=== PATIENT | female | born 1960 | race Caucasian/White ===

== ENCOUNTER 2019-07-12 09:38 | Emergency (ER) | payer MEDICARE ==
--- NOTE | 2019-07-12 10:50 | XRAY ---
Indication: Pain following fall one week ago. Comparison: None 3 nonweightbearing views of the right foot demonstrates moderate plantar heel spurs. No other bony, articular, or soft tissue abnormalities.
--- NOTE | 2019-07-12 10:52 | XRAY ---
Indication: Pain following fall one week ago. Comparison: None 2 views of the right lower leg demonstrates tiny patella spurring. No other bony, articular, or soft tissue abnormalities.
--- NOTE | 2019-07-12 10:52 | XRAY ---
Indication: Pain following fall one week ago. Comparison: None 2 views of the right femur demonstrates tiny patella spurring and minimal vascular calcifications including pelvic phleboliths. No other bony, articular, or soft tissue abnormalities.
--- NOTE | 2019-07-12 10:55 | XRAY ---
Indication: Pain following fall one week ago. Comparison: None 3 views of the left shoulder demonstrates moderate AC degenerative arthropathy. No other bony, articular, or soft tissue abnormalities.
[2019-07-12 11:34] VITALS: BP 143/73; PULSE 73; O2SAT 93
== END 2019-07-12 11:35 | disposition home or self-care (01) ==
LOC: ED 09:38
DX: M54.5 Low back pain (principal); W19.XXXA Unspecified fall, initial encounter; I10 Essential (primary) hypertension; I25.10 Atherosclerotic heart disease of native coronary artery without angina pectoris; E10.9 Type 1 diabetes mellitus without complications
CPT/HCPCS: 73030; 73552; 73590; 73630; 99283

== ENCOUNTER 2020-04-14 06:48 | Day surgery (SDC) | payer MEDICARE ==
[2020-04-14] MEDS ORDERED: CEFAZOLIN 2 GM-D5W BAG** 2 GM/50 ML ML IV ONE (07:18)
[2020-04-14] MEDS ORDERED: Lactated Ringers 1,000 ML IV ONE (07:18)
[2020-04-14] MEDS ORDERED: Lactated Ringers 1,000 ML IV SCH (07:30)
[2020-04-14] MEDS ORDERED: CEFAZOLIN 2 GM-D5W BAG** 2 GM/50 ML ML IV SCH (07:30)
[2020-04-14] MEDS ORDERED: Marcaine 0.5% SDV 10 ML ONE ×2 (08:14→10:17)
[2020-04-14] MEDS ORDERED: XYLOCAINE 1% HCL 20 ML MDV ONE (08:15)
[2020-04-14] MEDS ORDERED: SUBLIMAZE 100 MCG/2 ML ONE ×3 (08:39→10:42)
[2020-04-14] MEDS ORDERED: Versed 2 MG/2 ML Injection ONE (08:39)
[2020-04-14] MEDS ORDERED: Xylocaine-Mpf 2% 5 Ml Vial ONE (08:41)
[2020-04-14] MEDS ORDERED: DIPRIVAN 200 MG/20 ML IV ONE ×3 (09:07→10:03)
--- NOTE | 2020-04-14 10:33 | XRAY ---
Indication: Open reduction internal fixation nonunion left 5th metatarsal fracture with calcaneal bone graft. Intraoperative fluoroscopy was provided for 1 minute 49 seconds. 11 digital spot images submitted for interpretation demonstrates orthopedic plate/screws fixating distal 5th metatarsal fracture in good apposition/alignment. Calcaneal radiolucent defect presumed donor bone graft site. Correlate with intraoperative findings/reported.
[2020-04-14] MEDS ORDERED: TORAdol 30 mg Injection ONE (10:42)
--- NOTE | 2020-04-14 12:49 | XRAY ---
1 minute and 49 seconds fluoroscopy time in surgery for open reduction left 5th distal metatarsal and bone graft from left calcaneus.
--- NOTE | 2020-04-14 14:32 | OP ---
SURGERY DATE: 04/14/2020 0850 PREOPERATIVE DIAGNOSES: 1) Nonunion of fifth metatarsal fracture. 2) Left foot pain. POSTOPERATIVE DIAGNOSES: 1) Nonunion of fifth metatarsal fracture. 2) Left foot pain. PROCEDURE: Open reduction internal fixation of fifth metatarsal fracture left foot, calcaneal autograft harvest left foot and application of demineralized bone matrix. SURGEON: Rocael Goss DPM. CARPENTER'S HELPER: None. ANESTHESIA: MAC plus local. HEMOSTASIS: Thigh tourniquet up to 350 for approximately 70 minutes. ESTIMATED BLOOD LOSS: Less than 10 cc. MATERIALS: [employer] Y-plate four hole, 2 locking 10 mm screws, 2 nonlocking 12 mm screws, 2-0 Vicryl and 3-0 Nylon. INJECTABLES: Total of 27 cc of a 1:1 mixture of 0.5% Marcaine plain and 1% lidocaine plain. INDICATION FOR SURGERY: Tamara presented with significant pain to the left foot ongoing for approximately four months at the time of her appointment. The patient states that back in November 2019 she was at a pool in [place] when she jumped into the shallow end of the pool foot first the result was her fracturing her fifth metatarsal. Over the course of several months, she was seen by orthopedics in [place] whom had instructed her to ambulate with a stiff soled surgical shoe for several months. At the 3 month elie she was seen and told to ransition to a normal shoe as the fracture was healed or in the process of healing. She presened to me with more pain than she had initially had which she has had continued pain. At the time of presentation, she has had pain and a grinding sensation with ambultation suspecting a non-healed fracture at this time. The patient presented to me desperate for pain relief. After acquiring a CT scan and independently reviewing the images, it appears that there is a nonunion with minimal callous formation at the fracture site. At this time due to the pain and the evidence of a nonunion, she fits the criteria for a bone stimulator. However, the patient is adamant about the amount of pain she experiences when she ambulates and would like surgical intervention. The patient was advised of all the risks, complications and benefits of the procedure itself to which she agreed. There were no guarantees as to the outcome of this procedure to which the patient voiced her understanding and it was with that we decided to proceed with surgical intervention in order to give her the best possible outcome including resection of the nonunion autograft harvest from the calcaneus and placement into the deficit, internal fixation in order to prevent motion at the site of healing and a bone stimulator in order to promote growth. DESCRIPTION OF PROCEDURE AND FINDINGS: Following satisfactory preoperative evaluation by her physician and the anesthesia team, Tamara was brought into the OR and placed onto the OR table in supine position. At this time attention was directed to the left foot where preoperative x-rays were taken AP, MO and LAT. At this the anesthesia team administered MAC sedation and the patient was put to sleep. At this time a 27 cc solution of a 1:1 mixture of 0.5% Marcaine plain and 1% lidocaine plain was injected into the ankle in typical ankle block-type fashion under aspect technique. At this time the attention was directed towards the left foot and ankle where a thigh tourniquet was placed and set to 350 mm of Mercury. At this time the lower extremity was prepped and draped in the typical sterile fashion and the left lower extremity was lowered onto the surgical field. At this time a linear incision over the dorsal shaft of the fifth metatarsal was made utilizing a 15 blade combination of blunt and sharp dissection was utilized in order to get to the metatarsal shaft protecting any neurovascular structures along the way as well as the extensor tendons in the path of the fracture. At this time a freer was utilized to strip off any remaining soft tissue attachments to the bone identifying the fracture site which was not healed and no evidence of callous was present. At this time a curette was utilized to scrape the bone edges and a small 1/4 inch osteotome was utilized to resect the bone edges of the fracture site. At this time a point of reduction clamp was utilized to re-approximate the bone edges in its appropriate position and this was checked under fluoroscopy in order to assess the position. At this time the dorsal Y-plate was placed over the fracture site where I had intended on placing the definitive fixation. After determining the appropriate placement a BB tack was utilized to keep the placement of the plate from shifting at its proximal extent. At this time a nonlocking 12 mm screw was drilled into the most proximal aspect of the plate and placed in order to get apposition of the plate to the bone. After observing this under fluoroscopy and deeming it to be accurate the distal aspect of the plate was secured utilizing two - 10 mm locking screws to which were placed in the plate in a unicortical-type fashion. At this time attention was then directed to the left calcaneus where under fluoroscopy determination of where the autograft would be harvested was identified. After identifying the appropriate spot, a 15 blade was utilized to make an incision which was spread with a curved hemostat in order to prevent any neurovascular injury. A soft tissue protector and 2.0 mm drill were utilized to puncture a hole through the lateral aspect of the calcaneus and variably sized curettes were utilized in order to obtain some calcaneal autograft. The curettes were sized from 0 to 3 mm. After obtaining the bone graft a mixture of demineralized bone matrix was reinserted into the deficit under fluoroscopic guidance. At this time the autograft was placed within the deficit of the bone fracture site and the final screw was placed in the oblong hole gaining some eccentric compression of the fracture site however minimal. At this time the wound was superficially cleansed with copious amounts of sterile saline however as not to flush out any of the autograft. At this time a 2-0 Nylon was utilized to reapproximate the subcutaneous tissue in an interrupted-type fashion at the dorsal aspect of the fifth metatarsal. Following this a 3.0 Nylon was utilized to sera the skin edges and reapproximate them under no tension in a horizontal mattress-type fashion. At this time attention was directed to the incision for the calcaneal autograft where a 3-0 Nylon was utilized in a box stitch type fashion to reapproximate the incision at this place. Wet sterile saline soaked gauze was utilized to cleanse the leg and then was dried with a lap. Betadine paint was placed over the wounds which was covered by Adaptic, 4x4's, two Kerlix and one - 4 inch ELISEO. At this time the patient was reversed from anesthesia. The tourniquet time was approximately 70 minutes. The patient was returned to the postoperative anesthesia care unit with vital signs stable and vascular status intact. She handled the operation and the procedure without complication. POSTOPERATIVE ORDERS FOLLOWS: 1) Nonweight bearing to the left lower extremity. 2) Monroe 5/325 mg for postoperative pain every four or six hours dispense #40. 3) Postoperative prescription for Keflex 500 mg q.6h for infection prophylaxis. 4) Prescription for aspirin 325 mg to be taken postoperative day #2 for deep venous thrombosis prophylaxis. 5) The patient is to be nonweight bearing and utilize the knee scooter that she was provided in order to ambulate. It was expressed to her and her that she needs to stay off of the lower extremity for an extended period of time if we want this procedure to be successful. 6) Utilize the bone stimulator starting postoperative day #1. 7) The patient to be discharged per anesthesia recommendations after cleared from postoperative anesthesia care unit.
[2020-04-14 15:38] VITALS: BP 143/75; PULSE 53; O2SAT 97
== END 2020-04-14 12:05 | disposition home or self-care (01) ==
LOC: SDC 06:48
PROVIDERS: ATTEND Podiatrist Foot & Ankle Surgery
DX: S92.352K Displaced fracture of fifth metatarsal bone, left foot, subsequent encounter for fracture with nonunion (principal); E11.9 Type 2 diabetes mellitus without complications; I10 Essential (primary) hypertension; Z86.79 Personal history of other diseases of the circulatory system; Z79.899 Other long term (current) drug therapy
CPT/HCPCS: 28322; 73630; 76000; 82962; J0690; J1885; J2250; J2704; J3010

== ENCOUNTER 2020-09-15 05:55 | Day surgery (SDC) | payer MEDICARE ==
[2020-09-15] MEDS ORDERED: Lactated Ringers 1,000 ML IV SCH (06:30)
[2020-09-15] MEDS ORDERED: DIPRIVAN 200 MG/20 ML IV ONE (07:21)
[2020-09-15 08:39] VITALS: O2SAT 97
[2020-09-15 08:46] VITALS: BP 157/83; PULSE 74
--- NOTE | 2020-09-15 09:52 | OP ---
SURGERY DATE/TIME: 09/15/2020 0755 PREOPERATIVE DIAGNOSIS: Gastroesophageal reflux. POSTOPERATIVE DIAGNOSES: 1) Moderate gastritis. 2) Small benign gastric gland polyp. PROCEDURE: Esophagogastroduodenoscopy with biopsy. SURGEON: Dr. Choi. ANESTHESIA: Medications were given by the anesthesia department. BRIEF HISTORY: The patient is a 60 year old white female who reports that she has had trouble with reflux and heartburn despite her medications. She is taking famotidine presently and she previously had endoscopy performed and apparently had dilation procedure. The patient was felt the need to have endoscopic evaluation. She was appraised of the risks of the procedure including the risk of perforation, phlebitis, untoward reaction to medication, bleeding and missed lesions. The patient verbalized her understanding and desired to have the procedure performed. DESCRIPTION OF PROCEDURE: The patient was given the medications by the anesthesia department. She had continuous pulse oximetry, ECG monitoring, intermittent blood pressure monitoring and tidal CO2 monitoring during the examination. The patient was placed in the left lateral decubitus position. A bite block was placed and the flexible Olympus gastroscope was used to intubate the oropharynx. A view of the larynx was obtained and was normal. The scope was easily introduced in the esophagus which appeared to be essentially normal throughout its length. The stomach was entered where normal gastric rugal folds were seen. Small fundic gland polyps were seen which are considered to be benign. The scope was passed along the greater curvature of the stomach to the antrum. There appeared to be moderate erythema throughout the stomach. Biopsies were obtained to rule out the presence of Helicobacter pylori-type organisms and confirm the presence of gastritis. The pylorus was encountered and intubated. The duodenum inspected and found to be normal. The scope is withdrawn towards the stomach. Again, a retroflex view was obtained of the lesser curvature, fundus and cardia regions of the stomach and these appeared to essentially normal other than the gastritis and there was a very small polyp. The scope was removed from the patient who tolerated the procedure well and was sent back to outpatient recovery in good condition. We suggest the patient add a proton pump inhibitor to her H2 max to help with her gastritis. We will see her in the office in follow up in one week for further discussion about her biopsy reports.
== END 2020-09-15 08:50 | disposition home or self-care (01) ==
LOC: SDC 05:55
PROVIDERS: ATTEND Family Medicine
DX: K29.70 Gastritis, unspecified, without bleeding (principal); K21.9 Gastro-esophageal reflux disease without esophagitis; K31.7 Polyp of stomach and duodenum
CPT/HCPCS: J2704

== ENCOUNTER 2020-11-05 17:11 | Emergency (ER) | payer MEDICARE ==
[2020-11-05 17:24] VITALS: O2SAT 98
--- NOTE | 2020-11-05 17:32 | ERPHSYRPT ---
- History of Present Illness Source: patient Exam Limitations: no limitations Patient Subjective Stated Complaint: Pt fell through her porch injuring her right lower leg, pt is unable to place weight on the leg Triage Nursing Assessment: Pt was brought to the ER by her daughter, rates pain in her right lower leg as 9/10, nauseaous, right leg has a bruise that goes around the calf, denies any other injuries, pulses normal, cap refill normal, hypertensive, tachycardic Physician History: Patient is a 60-year-old female with right leg and ankle injury. Patient apparently injured her right leg and ankle and foot when it went through her the floor of her porch. Patient mainly complaining of pain from mid leg down. No previous injuries to that area in the past. Patient unable to bear weight. There are injuries. Method of Injury: fell Occurred: just prior to arrival Quality: constant, throbbing Severity of Pain-Max: severe Severity of Pain-Current: moderate Lower Extremities Pain: leg: right, foot: right, ankle: right Modifying Factors: Improves With: movement Associated Symptoms: unable to bear weight Allergies/Adverse Reactions: No Known Drug Allergies Allergy (Verified 11/05/20 17:24) Home Medications: Atorvastatin Calcium 10 mg PO DAILY 09/12/20 [History] Ergocalciferol (Vitamin D2) [Vitamin D] 50,000 unit PO WEEKLY 09/12/20 [History] Famotidine 20 mg [Pepcid 20 MG] 20 mg PO BID 09/12/20 [History] Gabapentin 100 mg PO BID 09/12/20 [History] Montelukast Sodium 10 mg [Singulair 10 MG] 10 mg PO HS 09/12/20 [History] Vitamin B Complex 1 each PO DAILY PRN PRN 09/12/20 [History] Hx Tetanus, Diphtheria Vaccination/Date Given: (unknown) Hx Influenza Vaccination/Date Given: No Hx Pneumococcal Vaccination/Date Given: Yes Travel Risk - International Travel Have you traveled outside of the country in past 3 weeks: No - Coronavirus Screening Are you exhibiting any of the following symptoms?: No Close contact with a COVID-19 positive Pt in past 14-21 Days: No - Review of Systems Constitutional: No Fever, No Chills Eyes: No Symptoms Ears, Nose, & Throat: No Symptoms Respiratory: No Cough, No Dyspnea Cardiac: No Chest Pain, No Edema, No Syncope Abdominal/Gastrointestinal: No Abdominal Pain, No Nausea, No Vomiting, No Diarrhea Genitourinary Symptoms: No Dysuria Musculoskeletal: Joint Pain, Joint Swelling, Myalgias, No Back Pain, No Neck Pain Skin: No Rash Neurological: No Dizziness, No Focal Weakness, No Sensory Changes Psychological: No Symptoms Endocrine: No Symptoms All Other Systems: Reviewed and Negative - Past Medical History Pertinent Past Medical History: Yes Neurological History: No Pertinent History ENT History: No Pertinent History Cardiac History: Coronary Artery Disease, High Cholesterol, Hypertension, Myocardial Infarction (CO) Respiratory History: Sleep Apnea Endocrine Medical History: Diabetes Type II Musculoskeletal History: No Pertinent History GI Medical History: GERD, Gallbladder Disease History: No Pertinent History Psycho-Social History: No Pertinent History Female Reproductive Disorders: No Pertinent History Other Medical History: UTI - Past Surgical History Past Surgical History: Yes Neuro Surgical History: No Pertinent History Cardiac: Cardiac Catheterization, Cardiac Stent Respiratory: No Pertinent History Gastrointestinal: Cholecystectomy Genitourinary: No Pertinent History Musculoskeletal: Orthopedic Surgery Female Surgical History: Hysterectomy, Tubal Ligation Other Surgical History: colonoscopy,EGD two yrs ago (GERD) exploratory lap - neg., left foot fx with plate placed March 2020 - Social History Smoking Status: Never smoker Exposure to second hand smoke: No Drug Use: none Patient Lives Alone: No - Female History Hx Now: No - Nursing Vital Signs Nursing Vital Signs: Initial Vital Signs Temperature 97.7 F 11/05/20 17:15 Pulse Rate 105 H 11/05/20 17:15 Blood Pressure 180/90 11/05/20 17:15 O2 Sat by Pulse Oximetry 98 11/05/20 17:15 Pain Scale Pain Intensity 9 - Physical Exam General Appearance: no apparent distress, alert Eyes, Ears, Nose, Throat Exam: moist mucous membranes Neck Exam: non-tender, supple Cardiovascular/Respiratory Exam: chest non-tender, normal breath sounds, regular rate/rhythm, no respiratory distress Gastrointestinal/Abdominal Exam: non-tender, guarding Back Exam: normal inspection, No vertebral tenderness Legs Exam: right leg: ecchymosis (Mid leg circumferentially), limited range of motion, soft tissue tenderness, swelling Ankle Exam: right ankle: joint effusion, limited range of motion, soft tissue tenderness (Lateral malleolus), swelling Foot Exam: right foot: pain (Proximal), soft tissue tenderness Neuro/Tendon Exam: normal sensation, normal motor functions Mental Status Exam: alert, oriented x 3, cooperative Skin Exam: normal color, warm, dry SpO2 Interpretation: normal SpO2: 98 - Course Nursing assessment & vital signs reviewed: Yes Ordered Tests: Active Orders 24 hr Category Date Time Status Splint STAT Care 11/05/20 18:41 Active ANKLE (3 VIEWS) Stat Exams 11/05/20 17:38 Taken LOWER LEG Stat Exams 11/05/20 17:38 Taken Medication Summary Discontinued Medications Generic Name Dose Route Start Last Admin Trade Name Freq PRN Reason Stop Dose Admin Hydrocodone Bitart/Acetaminophen 1 tab 11/05/20 17:44 11/05/20 17:49 [place] 5/325 Mg PO 11/05/20 17:45 1 tab STAT ONE Administration Hydrocodone Bitart/Acetaminophen Confirm 11/05/20 17:47 [place] 5/325 Mg Administered 11/05/20 17:48 Dose 1 tab .ROUTE .STK-MED ONE - Departure Departure Disposition: Home Clinical Impression: Right ankle sprain, Contusion of leg, right Condition: Stable Critical Care Time: No Referrals: CARLITOS DYKES [Primary Care Provider] - Instructions: Contusion (DC), Ankle Sprain (DC) Additional Instructions: Monitor symptoms closely. Ice to area. Rest. Compression. Elevation. Ibuprofen or Aleve for pain. Use knee roller as discussed. Follow-up with your PCP in 3 to 3 days for recheck if not better. Return to ER if worse. Our radiologist will review the x-ray and call you if there is a discrepancy in the x-ray readings. Prescriptions: Hydrocodone/APAP 5/325 [Craigmont 5/325 mg] 1 each PO Q6H PRN PRN #10 tablet MDD 4 tabs PRN Reason: Pain
[2020-11-05] MEDS ORDERED: NORCO 5/325 MG PO ONE (17:44)
[2020-11-05] MEDS ORDERED: NORCO 5/325 MG ONE (17:47)
[2020-11-05 18:17] VITALS: BP 160/107
[2020-11-05 19:01] VITALS: PULSE 78
--- NOTE | 2020-11-06 08:36 | XRAY ---
Indication: Pain following fall. Comparison: None 2 view right lower leg demonstrates mild lateral soft tissue swelling. No other bony, articular, or soft tissue abnormalities. Ankle reported separately.
--- NOTE | 2020-11-06 08:36 | XRAY ---
Indication: Pain following fall. Comparison: None 3 view right ankle demonstrates minimal lateral soft tissue swelling and small posterior/plantar heel spurs. No other bony, articular, or soft tissue abnormalities.
== END 2020-11-05 19:11 | disposition home or self-care (01) ==
LOC: ED 17:11
DX: S93.401A Sprain of unspecified ligament of right ankle, initial encounter (principal); W17.89XA Other fall from one level to another, initial encounter; Y92.008 Other place in unspecified non-institutional (private) residence as the place of occurrence of the external cause; M79.661 Pain in right lower leg; Z79.899 Other long term (current) drug therapy; I25.10 Atherosclerotic heart disease of native coronary artery without angina pectoris; E11.9 Type 2 diabetes mellitus without complications; I10 Essential (primary) hypertension; I25.2 Old myocardial infarction; G47.30 Sleep apnea, unspecified
CPT/HCPCS: 73590; 73610; 99284; A9270-GY

== ENCOUNTER 2021-09-06 21:47 | Emergency (ER) | payer MEDICARE ==
--- NOTE | 2021-09-06 21:49 | ERPHSYRPT ---
- History of Present Illness Time Seen by Provider: 09/06/21 21:49 Source: patient Exam Limitations: no limitations Physician History: This is an obese 61-year-old white female patient of [place] Baron who has a history of coronary artery disease and coronary stent in place, elevated cholesterol, gastroesophageal reflux disease, sleep apnea, myocardial infarction and hypertension presents with concerns of elevated systolic blood pressure over 200. Patient states that she is under a lot of stress at this time. Patient did take her blood pressure medicine as instructed. She is on hydralazine 10 mg orally twice a day Timing/Duration: today Severity: moderate Modifying Factors: Improves With: other (Patient under a lot of stress) Associated Symptoms: nausea, vomiting, headaches Allergies/Adverse Reactions: No Known Drug Allergies Allergy (Verified 09/06/21 22:05) Home Medications: Atorvastatin Calcium 10 mg PO DAILY 09/12/20 [History] Ergocalciferol (Vitamin D2) [Vitamin D] 50,000 unit PO WEEKLY 09/12/20 [History] Famotidine 20 mg [Pepcid 20 MG] 20 mg PO BID 09/12/20 [History] Gabapentin 200 mg PO DAILY 09/12/20 [History] Montelukast Sodium 10 mg [Singulair 10 MG] 10 mg PO HS 09/12/20 [History] Vitamin B Complex 1 each PO DAILY PRN PRN 09/12/20 [History] Hydralazine HCl 10 mg PO BID 09/06/21 [History] clonazePAM [Clonazepam] 0.5 mg PO DAILY PRN PRN 09/06/21 [History] Hx Tetanus, Diphtheria Vaccination/Date Given: (unknown) Hx Influenza Vaccination/Date Given: No Hx Pneumococcal Vaccination/Date Given: Yes Travel Risk - International Travel Have you traveled outside of the country in past 3 weeks: No - Coronavirus Screening Are you exhibiting any of the following symptoms?: No Close contact with a COVID-19 positive Pt in past 14-21 Days: No - Review of Systems Constitutional: No Symptoms Eyes: No Symptoms Ears, Nose, & Throat: No Symptoms Respiratory: No Symptoms Cardiac: No Symptoms Abdominal/Gastrointestinal: Nausea, Vomiting Genitourinary Symptoms: No Symptoms Musculoskeletal: No Symptoms Skin: No Symptoms Neurological: Dizziness, Headache Psychological: Anxiety Endocrine: No Symptoms Hematologic/Lymphatic: No Symptoms Immunological/Allergic: No Symptoms All Other Systems: Reviewed and Negative - Past Medical History Pertinent Past Medical History: Yes Neurological History: No Pertinent History ENT History: No Pertinent History Cardiac History: Coronary Artery Disease, High Cholesterol, Hypertension, Myocardial Infarction ([place]) Respiratory History: Sleep Apnea Endocrine Medical History: Diabetes Type II Musculoskeletal History: No Pertinent History GI Medical History: GERD, Gallbladder Disease History: No Pertinent History Psycho-Social History: No Pertinent History Female Reproductive Disorders: No Pertinent History Other Medical History: UTI - Past Surgical History Past Surgical History: Yes Neuro Surgical History: No Pertinent History Cardiac: Cardiac Catheterization, Cardiac Stent Respiratory: No Pertinent History Gastrointestinal: Cholecystectomy Genitourinary: No Pertinent History Musculoskeletal: Orthopedic Surgery Female Surgical History: Hysterectomy, Tubal Ligation Other Surgical History: colonoscopy,EGD two yrs ago (GERD) exploratory lap - neg., left foot fx with plate placed March 2020 - Social History Smoking Status: Never smoker Exposure to second hand smoke: No Drug Use: none Patient Lives Alone: No - Nursing Vital Signs Nursing Vital Signs: Initial Vital Signs Temperature 97.0 F 09/06/21 21:54 Pulse Rate 70 09/06/21 21:54 Respiratory Rate 20 09/06/21 21:54 Blood Pressure 204/117 09/06/21 21:54 O2 Sat by Pulse Oximetry 99 09/06/21 21:54 Pain Scale Pain Intensity 0 - Physical Exam General Appearance: mild distress, alert, anxiety Eye Exam: PERRL/EOMI, eyes nml inspection Ears, Nose, Throat Exam: normal ENT inspection, moist mucous membranes Neck Exam: normal inspection, non-tender, supple, full range of motion Respiratory Exam: normal breath sounds, lungs clear, airway intact, No chest tenderness, No respiratory distress Cardiovascular Exam: regular rate/rhythm, normal heart sounds, normal peripheral pulses Gastrointestinal/Abdomen Exam: soft, normal bowel sounds, tenderness Pelvic Exam: not done Rectal Exam: not done Back Exam: normal inspection, normal range of motion, No CVA tenderness, No vertebral tenderness Extremity Exam: normal inspection, normal range of motion, pelvis stable Neurologic Exam: alert, oriented x 3, 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, 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, normal mood/affect, nml cerebellar function, nml station & gait Skin Exam: normal color, warm, dry Lymphatic Exam: No adenopathy SpO2 Interpretation: normal O2 Delivery: Room Air - Course Nursing assessment & vital signs reviewed: Yes Ordered Tests: Active Orders 24 hr Category Date Time Status EKG-ER Only STAT Care 09/06/21 22:09 Active IV Insertion STAT Care 09/06/21 22:09 Active Pulse Oximetry (ED) STAT Care 09/06/21 22:09 Active HEAD WITHOUT CONTRAST [CT] Stat Exams 09/06/21 22:13 Taken CBC W DIFF Stat Lab 09/06/21 22:39 Completed CMP Stat Lab 09/06/21 22:39 Completed MAGNESIUM Stat Lab 09/06/21 22:39 Completed Manual Differential NC Stat Lab 09/06/21 22:39 Completed NT PRO BNP Stat Lab 09/06/21 22:39 Completed TROPONIN Q3H Lab 09/06/21 22:39 Completed TROPONIN Q3H Lab 09/07/21 01:15 Ordered TROPONIN Q3H Lab 09/07/21 04:15 Ordered TROPONIN Q3H Lab 09/07/21 07:15 Ordered TROPONIN Q3H Lab 09/07/21 10:15 Ordered Medication Summary Discontinued Medications Generic Name Dose Route Start Last Admin Trade Name Trey PRN Reason Stop Dose Admin Enalaprilat 1.25 mg 09/06/21 22:09 09/06/21 22:17 Enalaprilat 2.5 Mg Injection IV 09/06/21 22:10 1.25 mg STAT ONE Administration Enalaprilat Confirm 09/06/21 22:16 Enalaprilat 2.5 Mg Injection Administered 09/06/21 22:17 Dose 2.5 mg IV .STK-MED ONE Lorazepam 1 mg 09/06/21 22:09 09/06/21 22:17 Lorazepam 2 Mg/1 Ml 2 Mg Vial IV 09/06/21 22:10 1 mg STAT ONE Administration Lorazepam Confirm 09/06/21 22:16 Lorazepam 2 Mg/1 Ml 2 Mg Vial Administered 09/06/21 22:17 Dose 2 mg .ROUTE .STK-MED ONE Lab/Rad Data: Laboratory Result Diagrams 09/06/21 22:39 09/06/21 22:39 Laboratory Results 09/06/21 09/06/21 09/06/21 Range/Units 22:39 22:39 22:39 WBC 7.3 (4.0-10.5) K/mm3 RBC 4.69 (4.1-5.4) M/mm3 Hgb 14.2 (12.0-16.0) gm/dl Hct 42.5 (35-47) % MCV 90.6 (78-100) fl MCH 30.3 (26-32) pg MCHC 33.4 (32-36) g/dl RDW 12.6 (11.5-14.0) % Plt Count 239 (150-450) K/mm3 MPV 10.9 (7.5-11.0) fl Sodium 139 (137-145) mmol/L Potassium 3.6 (3.5-5.1) mmol/L Chloride 102 (98-107) mmol/L Carbon Dioxide 27 (22-30) mmol/L Anion Gap 13.6 (5-15) MEQ/L BUN 13 (7-17) mg/dL Creatinine 0.82 (0.52-1.04) mg/dL Estimated GFR > 60.0 ML/MIN Glucose 134 H (74-106) mg/dL Calcium 9.5 (8.4-10.2) mg/dL Magnesium 2.1 (1.6-2.3) mg/dL Total Bilirubin 0.70 (0.2-1.3) mg/dL AST 29 (14-36) U/L ALT 29 (0-35) U/L Alkaline Phosphatase 107 (38-126) U/L Troponin I < 0.012 (0.000-0.034) ng/mL NT-Pro-B Natriuret Pep 57.8 (0-900) pg/mL Serum Total Protein 7.2 (6.3-8.2) g/dL Albumin 4.3 (3.5-5.0) g/dL - Progress Progress: improved, re-examined Progress Note: 09/06/21 23:42 Cat scan of the head without contrast shows no acute intracranial abnormality. Medical decision making: This patient states she is feeling much better. Her systolic blood pressures in the 130s to 140s. She does not have any visual changes. She has no headache. She has no chest pain. She is not nauseated Counseled pt/family regarding: lab results, diagnosis, need for follow-up, rad results - Departure Departure Disposition: Home Clinical Impression: Hypertensive urgency, Stress reaction Condition: Stable Critical Care Time: No Critical Care Time(excluding separately billable procedures): Critical 30-74 mins (30) Referrals: CARLITOS PADILLA [Primary Care Provider] - Follow up/PCP as directed Additional Instructions: Take your medication as prescribed. Follow-up with your primary care physician for further management.
[2021-09-06] MEDS ORDERED: Ativan 2 MG/1 ML VIAL IV ONE (22:09)
[2021-09-06] MEDS ORDERED: VASOTEC I.V. 2.5 MG IV ONE ×2 (22:09→22:16)
[2021-09-06] MEDS ORDERED: Ativan 2 MG/1 ML VIAL ONE (22:16)
[2021-09-06 22:52] LABS: Hematocrit 42.5 % (35-47); Hemoglobin 14.2 gm/dl (12.0-16.0); Mean Cell Volume 90.6 fl (78-100); Mean Corpuscular Hemoglobin 30.3 pg (26-32); Mean Corpuscular Hgb Concent. 33.4 g/dl (32-36); Mean Platelet Volume 10.9 fl (7.5-11.0); Platelet Count 239 K/mm3 (150-450); Red Blood Count 4.69 M/mm3 (4.1-5.4); Red Cell Distribution Width 12.6 % (11.5-14.0); White Blood Count 7.3 K/mm3 (4.0-10.5)
[2021-09-06 23:25] VITALS: BP 126/76; PULSE 71; O2SAT 95
[2021-09-06 23:31] LABS: CHLORIDE 102 mmol/L (98-107); Calcium 9.5 mg/dL (8.4-10.2); MAGNESIUM 2.1 mg/dL (1.6-2.3); Potassium 3.6 mmol/L (3.5-5.1); SODIUM 139 mmol/L (137-145)
[2021-09-06 23:34] LABS: BLOOD UREA NITROGEN 13 mg/dL (7-17)
[2021-09-06 23:38] LABS: ALBUMIN 4.3 g/dL (3.5-5.0); ALKALINE PHOSPHATASE 107 U/L (38-126); Carbon Dioxide 27 mmol/L (22-30); Creatinine 1 0.82 mg/dL (0.52-1.04); EST GLOMERULAR FILTRATION RATE > 60.0 ML/MIN; Glucose 134 mg/dL (74-106); NT PRO BNP 57.8 pg/mL (0-900); SGOT/AST 29 U/L (14-36); SGPT/ALT 29 U/L (0-35); Total Protein 7.2 g/dL (6.3-8.2)
[2021-09-06 23:40] LABS: ANION GAP 13.6 MEQ/L (5-15)
[2021-09-07 01:10] LABS: Eosinophil 2 % (0.00-3.0); Lymphocytes 40 % (24-44); Monocyte 7 % (0.0-12.0); Neutrophils 51 % (36.0-66.0); Platelet Estimate NORMAL (NORMAL); Total Cells Counted 100
--- NOTE | 2021-09-07 09:02 | XRAY ---
Indication: Headache, vomiting, and hypertension. Multiple contiguous axial images obtained through the head without contrast. Comparison: May 10, 2015. Normal appearing brain parenchyma, ventricles, and bony calvarium. Visualized paranasal sinuses and mastoid air cells are clear. Impression: Continued normal CT head without contrast exam. Comment: Preliminary interpretation made by [facility]. No critical discrepancy.
== END 2021-09-06 23:50 | disposition home or self-care (01) ==
LOC: ED 21:47
DX: I16.0 Hypertensive urgency (principal); I10 Essential (primary) hypertension; F43.9 Reaction to severe stress, unspecified; I25.10 Atherosclerotic heart disease of native coronary artery without angina pectoris; I25.2 Old myocardial infarction; Z95.5 Presence of coronary angioplasty implant and graft; E78.5 Hyperlipidemia, unspecified; K21.9 Gastro-esophageal reflux disease without esophagitis; G47.30 Sleep apnea, unspecified; E11.9 Type 2 diabetes mellitus without complications; Z79.899 Other long term (current) drug therapy
CPT/HCPCS: 36000; 36415; 70450; 80053; 83735; 83880; 84484; 85025; 93005; 94760; 96374; 96375; 99284; 99291; J2060

== ENCOUNTER 2021-12-10 21:11 | Emergency (ER) | payer MEDICARE ==
--- NOTE | 2021-12-10 21:43 | ERPHSYRPT ---
- History of Present Illness Source: patient Exam Limitations: no limitations Patient Subjective Stated Complaint: pt states "I have been coughing making it short of breath. I had a steriod shot Friday and I still haven't felt better. Today it has got harder to breath." Triage Nursing Assessment: pt ambulated into the er; pt is axo x4; c/o SOB; c/o cough; pt states 6/10 pain to back with coughing; pt states dry hacking cough; lung sounds clear darnell; dry hacking cough present; clear heart tone; pt denies N/V/D; hypertensive; afebrile Physician History: 61 yo wf cc of cough x 3 days which is nonproductive. Pt states that she has been dyspneic x 4 hours w inferior sternal chest pain which radiates to her back. Pain is rated 6/10 on scale and described as an ache. She denies N/V/fever/melena/hematochezia. Dyspnea worse when coughing. Pt has a h/o CAD/Stents/DM/HTN/hyperlipidemia. H/O [place] is denied. Timing/Duration: hour(s) (4 hours) Activities at Onset: other (Coughing) Severity of Dyspnea-Max: moderate Severity of Dyspnea-Current: mild Possible Cause: no prior episodes Modifying Factors: Improves With: coughing Associated Symptoms: chest pain/discomfort, No edema, No fever, No insomnia, No loss of appetite, No lightheadedness, No wheezing, No weakness, No ankle swelling, No chills, No hemoptysis, No calf pain, No dizziness, No heaviness, No heart racing, No lightheadedness, No leg swelling, No muscle spasms feet, No muscle spasms hands, No painful breathing, No productive cough, No sweating, No tightness, No tingling face Allergies/Adverse Reactions: No Known Drug Allergies Allergy (Verified 12/10/21 21:16) Home Medications: Atorvastatin Calcium 10 mg PO DAILY 09/12/20 [History] Ergocalciferol (Vitamin D2) [Vitamin D] 50,000 unit PO WEEKLY 09/12/20 [History] Famotidine 20 mg [Pepcid 20 MG] 20 mg PO BID 09/12/20 [History] Gabapentin 200 mg PO DAILY 09/12/20 [History] Montelukast Sodium 10 mg [Singulair 10 MG] 10 mg PO HS 09/12/20 [History] Vitamin B Complex 1 each PO DAILY PRN PRN 09/12/20 [History] Hydralazine HCl 10 mg PO BID 09/06/21 [History] clonazePAM [Clonazepam] 0.5 mg PO DAILY PRN PRN 09/06/21 [History] Hx Tetanus, Diphtheria Vaccination/Date Given: Yes Hx Influenza Vaccination/Date Given: Yes Hx Pneumococcal Vaccination/Date Given: Yes Travel Risk - International Travel Have you traveled outside of the country in past 3 weeks: No - Coronavirus Screening Are you exhibiting any of the following symptoms?: Yes Symptoms: Cough: New Onset, Shortness of Breath Close contact with a COVID-19 positive Pt in past 14-21 Days: No - Vaccine Status Have you recieved a Covid-19 vaccination: Yes [employer]: [employer] - Vaccination Dates Date of 2cond Vaccination (if applicable): 02/2021 - Review of Systems Constitutional: No Symptoms Eyes: No Symptoms Ears, Nose, & Throat: No Symptoms Respiratory: No Symptoms, Cough, Dyspnea Cardiac: No Symptoms, Chest Pain Abdominal/Gastrointestinal: No Symptoms Genitourinary Symptoms: No Symptoms Musculoskeletal: No Symptoms Skin: No Symptoms Neurological: No Symptoms Psychological: No Symptoms Endocrine: No Symptoms Hematologic/Lymphatic: No Symptoms Immunological/Allergic: No Symptoms - Past Medical History Pertinent Past Medical History: Yes Neurological History: No Pertinent History ENT History: No Pertinent History Cardiac History: Coronary Artery Disease, High Cholesterol, Hypertension, Myocardial Infarction ([place]) Respiratory History: Sleep Apnea Endocrine Medical History: Diabetes Type II Musculoskeletal History: No Pertinent History GI Medical History: GERD, Gallbladder Disease History: No Pertinent History Psycho-Social History: No Pertinent History Female Reproductive Disorders: No Pertinent History Other Medical History: UTI - Past Surgical History Past Surgical History: Yes Neuro Surgical History: No Pertinent History Cardiac: Cardiac Catheterization, Cardiac Stent Respiratory: No Pertinent History Gastrointestinal: Cholecystectomy Genitourinary: No Pertinent History Musculoskeletal: Orthopedic Surgery Female Surgical History: Hysterectomy, Tubal Ligation Other Surgical History: colonoscopy,EGD two yrs ago (GERD) exploratory lap -neg. , left foot fx with plate placed March 2020 - Social History Smoking Status: Never smoker Exposure to second hand smoke: Yes Drug Use: none Patient Lives Alone: No Significant Family History: no pertinent family hx - Nursing Vital Signs Nursing Vital Signs: Initial Vital Signs Temperature 98.9 F 12/10/21 21:16 Pulse Rate 96 H 12/10/21 21:16 Respiratory Rate 24 12/10/21 21:16 Blood Pressure 169/82 12/10/21 21:16 O2 Sat by Pulse Oximetry 98 12/10/21 21:16 Pain Scale Pain Intensity 3 Hypertensive - Physical Exam General Appearance: no apparent distress Eye Exam: PERRL/EOMI, eyes nml inspection Ears, Nose, Throat Exam: hearing grossly normal, normal ENT inspection, normal pharynx Neck Exam: normal inspection, non-tender, supple, full range of motion, No Brudzinski, No Kernig's, No meningismus, No carotid bruit, No JVD Respiratory Exam: normal breath sounds, lungs clear, airway intact, No chest tenderness, No respiratory distress Cardiovascular/Chest Exam: normal heart sounds, regular rate/rhythm, normal peripheral pulses, No murmur, No edema, No gallop/S3 Abdominal/Gastrointestinal Exam: soft, normal bowel sounds, No tenderness Extremity Exam: non-tender, normal range of motion, normal inspection, normal capillary refill, no calf tenderness, no pedal edema Peripheral Pulses Exam: carotid (R): 2+, carotid (L): 2+ Neurologic Exam: alert, oriented x 3, 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, 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 as tested, normal mood/affect, nml cerebellar function, nml station & gait, sensation nml, No motor deficits, No sensory deficit Skin Exam: normal color, warm, dry Lymphatic Exam: No adenopathy SpO2 Interpretation: normal SpO2: 98 O2 Delivery: Room Air - Course Nursing assessment & vital signs reviewed: Yes EKG Interpreted by Me: RATE (NSR/Rate86/Normal QT-QTc/Flat T waves) - CT Exams Chest CT Interpretation: Tele-radiologist Report (No PE, AD, or infiltrates) Ordered Tests: Active Orders 24 hr Category Date Time Status EKG-ER Only STAT Care 12/10/21 21:34 Completed IV Insertion STAT Care 12/10/21 21:34 Completed CHEST 1 VIEW (PORTABLE) Stat Exams 12/10/21 21:35 Taken CHEST WITH CONTRAST [CT] Stat Exams 12/10/21 22:45 Taken CBC W DIFF Stat Lab 12/10/21 21:45 Completed CMP Stat Lab 12/10/21 21:45 Completed D-DIMER QUANTITATIVE Stat Lab 12/10/21 21:45 Completed NT PRO BNP Stat Lab 12/10/21 21:45 Completed PROTIME WITH INR Stat Lab 12/10/21 21:45 Completed PTT Stat Lab 12/10/21 21:45 Completed TROPONIN Q3H Lab 12/10/21 21:45 Completed TROPONIN Q3H Lab 12/11/21 00:20 Completed Lab/Rad Data: Laboratory Result Diagrams 12/10/21 21:45 12/10/21 21:45 Laboratory Results 12/11/21 12/10/21 12/10/21 Range/Units 00:20 21:55 21:45 WBC (4.0-10.5) K/mm3 RBC (4.1-5.4) M/mm3 Hgb (12.0-16.0) gm/dl Hct (35-47) % MCV (78-100) fl MCH (26-32) pg MCHC (32-36) g/dl RDW (11.5-14.0) % Plt Count (150-450) K/mm3 MPV (7.5-11.0) fl Gran % (36.0-66.0) % Eos # (Auto) (0-0.5) Absolute Lymphs (auto) (1.0-4.6) Absolute Monos (auto) (0.0-1.3) Lymphocytes % (24.0-44.0) % Monocytes % (0.0-12.0) % Eosinophils % (0.00-5.0) % Basophils % (0.0-0.4) % Absolute Granulocytes (1.4-6.9) Basophils # (0-0.4) PT (9.4-12.5) SECONDS INR (0.8-3.0) APTT (25.1-36.5) SECONDS D-Dimer (215-500) ng/mL Sodium (137-145) mmol/L Potassium (3.5-5.1) mmol/L Chloride (98-107) mmol/L Carbon Dioxide (22-30) mmol/L Anion Gap (5-15) MEQ/L BUN (7-17) mg/dL Creatinine (0.52-1.04) mg/dL Estimated GFR ML/MIN Glucose (74-106) mg/dL Calcium (8.4-10.2) mg/dL Total Bilirubin (0.2-1.3) mg/dL AST (14-36) U/L ALT (0-35) U/L Alkaline Phosphatase (38-126) U/L Troponin I < 0.012 < 0.012 (0.000-0.034) ng/mL NT-Pro-B Natriuret Pep (0-900) pg/mL Serum Total Protein (6.3-8.2) g/dL Albumin (3.5-5.0) g/dL Influenza Type A Ag NEGATIVE (NEGATIVE) Influenza Type B Ag NEGATIVE (NEGATIVE) RSV (PCR) NEGATIVE (Negative) SARS-CoV-2 (PCR) NEGATIVE (NEGATIVE) 12/10/21 12/10/21 12/10/21 Range/Units 21:45 21:45 21:45 WBC 9.9 (4.0-10.5) K/mm3 RBC 4.51 (4.1-5.4) M/mm3 Hgb 14.0 (12.0-16.0) gm/dl Hct 41.0 (35-47) % MCV 90.9 (78-100) fl MCH 31.0 (26-32) pg MCHC 34.1 (32-36) g/dl RDW 12.6 (11.5-14.0) % Plt Count 245 (150-450) K/mm3 MPV 9.9 (7.5-11.0) fl Gran % 69.6 H (36.0-66.0) % Eos # (Auto) 0.09 (0-0.5) Absolute Lymphs (auto) 1.97 (1.0-4.6) Absolute Monos (auto) 0.91 (0.0-1.3) Lymphocytes % 19.9 L (24.0-44.0) % Monocytes % 9.2 (0.0-12.0) % Eosinophils % 0.9 (0.00-5.0) % Basophils % 0.4 (0.0-0.4) % Absolute Granulocytes 6.87 (1.4-6.9) Basophils # 0.04 (0-0.4) PT 11.4 (9.4-12.5) SECONDS INR 0.97 (0.8-3.0) APTT 28.2 (25.1-36.5) SECONDS D-Dimer 728 H* (215-500) ng/mL Sodium 139 (137-145) mmol/L Potassium 3.7 (3.5-5.1) mmol/L Chloride 103 (98-107) mmol/L Carbon Dioxide 27 (22-30) mmol/L Anion Gap 13.1 (5-15) MEQ/L BUN 9 (7-17) mg/dL Creatinine 0.71 (0.52-1.04) mg/dL Estimated GFR > 60.0 ML/MIN Glucose 136 H (74-106) mg/dL Calcium 9.4 (8.4-10.2) mg/dL Total Bilirubin 0.60 (0.2-1.3) mg/dL AST 24 (14-36) U/L ALT 25 (0-35) U/L Alkaline Phosphatase 92 (38-126) U/L Troponin I (0.000-0.034) ng/mL NT-Pro-B Natriuret Pep 70.5 (0-900) pg/mL Serum Total Protein 7.2 (6.3-8.2) g/dL Albumin 4.2 (3.5-5.0) g/dL Influenza Type A Ag (NEGATIVE) Influenza Type B Ag (NEGATIVE) RSV (PCR) (Negative) SARS-CoV-2 (PCR) (NEGATIVE) - Progress Progress: improved Progress Note: 12/11/21 01:23 Pt's chest pain appears to be mainly when coughing and not cardiac. Spoke to her about observation due to h/o CAD/Stents/DM/HTN, but she refuses at this time. She is pain free upon discharge. Troponin neg x2 and CTA of chest neg for PE/AD/infiltrates. 12/11/21 01:26 Counseled pt/family regarding: lab results, diagnosis, need for follow-up, rad results - Departure Departure Disposition: Home Clinical Impression: Bronchitis Condition: Stable Critical Care Time: No Referrals: CARLITOS PADILLA [Primary Care Provider] - Follow up/PCP as directed Instructions: Acute Bronchitis, Adult (DC) Additional Instructions: Follow up with your family MD in 1-2 days Start Doxycycline twice a day for 7 days Return to ER for increasing shortness of breath, worsening chest pain, or temperature greater than 100.5 Prescriptions: Doxycycline Monohydrate 100 mg PO BID 7 Days #14
[2021-12-10 21:58] LABS: Absolute Neutrophil Ct (ANC) 6.87 (1.4-6.9); Basophil (Absolute #) 0.04 (0-0.4); Eosinophil % 0.9 % (0.00-5.0); Eosinophil (Absolute #) 0.09 (0-0.5); Lymphocyte (Absolute #) 1.97 (1.0-4.6); Lymphocytes % 19.9 % (24.0-44.0); Mean Cell Volume 90.9 fl (78-100); Mean Corpuscular Hgb Concent. 34.1 g/dl (32-36); Mean Platelet Volume 9.9 fl (7.5-11.0); Monocyte (Absolute #) 0.91 (0.0-1.3); Monocytes % 9.2 % (0.0-12.0); Neutrophil % 69.6 % (36.0-66.0); Platelet Count 245 K/mm3 (150-450); Red Blood Count 4.51 M/mm3 (4.1-5.4); Red Cell Distribution Width 12.6 % (11.5-14.0); White Blood Count 9.9 K/mm3 (4.0-10.5)
[2021-12-10 22:08] LABS: INR 0.97 (0.8-3.0); PROTIME 11.4 SECONDS (9.4-12.5)
[2021-12-10 22:11] LABS: PTT 28.2 SECONDS (25.1-36.5)
[2021-12-10 22:21] LABS: ALBUMIN 4.2 g/dL (3.5-5.0); ALKALINE PHOSPHATASE 92 U/L (38-126); ANION GAP 13.1 MEQ/L (5-15); BLOOD UREA NITROGEN 9 mg/dL (7-17); CHLORIDE 103 mmol/L (98-107); Calcium 9.4 mg/dL (8.4-10.2); Carbon Dioxide 27 mmol/L (22-30); Creatinine 1 0.71 mg/dL (0.52-1.04); EST GLOMERULAR FILTRATION RATE > 60.0 ML/MIN; Glucose 136 mg/dL (74-106); NT PRO BNP 70.5 pg/mL (0-900); Potassium 3.7 mmol/L (3.5-5.1); SGOT/AST 24 U/L (14-36); SGPT/ALT 25 U/L (0-35); SODIUM 139 mmol/L (137-145); Total Protein 7.2 g/dL (6.3-8.2)
[2021-12-10 22:36] LABS: INFLUENZA A NEGATIVE (NEGATIVE); INFLUENZA B NEGATIVE (NEGATIVE); RESPIRATORY SYNCTIAL VIRUS NEGATIVE (Negative); SARS-CoV-2 Xpert Express NEGATIVE (NEGATIVE)
[2021-12-11 01:10] VITALS: BP 161/87; PULSE 83
[2021-12-11 01:28] VITALS: O2SAT 98
--- NOTE | 2021-12-11 08:55 | XRAY ---
Indication: Dyspnea. Comparison: March 24, 2017. Portable apical lordotic chest again demonstrates normal heart and lungs with CT proven left base Bochdalek hernia. Bony thorax intact again with mild osteopenia and degenerative changes. No new/acute findings.
--- NOTE | 2021-12-11 08:55 | XRAY ---
Indication: Cough. Elevated d-dimer. Multiple contiguous axial images obtained through the chest using 100 cc Isovue 370 contrast and PE protocol. Comparison: April 29, 2018. There is good opacification of the pulmonary arteries including lobar and segmental branches. No pulmonary embolus. Heart not enlarged. Aorta is normal in course and caliber. No pathologic mediastinal/hilar lymphadenopathy. Lungs inflated and remain clear. Posterior left lung base demonstrate stable Bochdalek hernia defect with herniated omental fat. Bony thorax intact. Limited upper abdomen again demonstrates fatty liver and cholecystectomy clips. Impression: 1. Negative pulmonary embolus. No new/acute cardiopulmonary abnormalities. 2. Again incidental fatty liver and Bochdalek hernia. Comment: Preliminary interpretation made by [facility]. No critical discrepancy.
== END 2021-12-11 01:47 | disposition home or self-care (01) ==
LOC: ED 21:11
DX: J40 Bronchitis, not specified as acute or chronic (principal); R06.00 Dyspnea, unspecified; R07.9 Chest pain, unspecified; R05.1 Acute cough; I25.10 Atherosclerotic heart disease of native coronary artery without angina pectoris; E11.9 Type 2 diabetes mellitus without complications; I10 Essential (primary) hypertension; E78.5 Hyperlipidemia, unspecified; K21.9 Gastro-esophageal reflux disease without esophagitis; Z79.899 Other long term (current) drug therapy
CPT/HCPCS: 0241U; 36000; 36415; 71045; 71260; 80053; 83880; 84484; 85025; 85379; 85610; 85730; 93005; 99284

== ENCOUNTER 2022-08-05 19:57 | Emergency (ER) | payer MEDICARE ==
[2022-08-05 20:05] VITALS: O2SAT 98
[2022-08-05 21:16] VITALS: BP 174/102; PULSE 88
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
--- NOTE | 2022-08-06 08:49 | XRAY ---
Indication: Pain following injury. Comparison: None 2 view left lower leg demonstrates mild osteopenia. No other bony, articular, or soft tissue abnormalities.
--- NOTE | 2022-08-06 08:50 | XRAY ---
Indication: Pain following injury. Comparison: None 3 nonweightbearing views left foot demonstrates mild osteopenia, old distal 5th metatarsal fracture with intact hardware, tiny spurring base 5th metatarsal, and tiny posterior/small heel spurs. No other bony, articular, or soft tissue abnormalities.
== END 2022-08-05 21:30 | disposition home or self-care (01) ==
LOC: ED 19:57
DX: S80.12XA Contusion of left lower leg, initial encounter (principal); Y00.XXXA Assault by blunt object, initial encounter; M79.672 Pain in left foot; E78.5 Hyperlipidemia, unspecified; I10 Essential (primary) hypertension; E11.9 Type 2 diabetes mellitus without complications; Z79.02 Long term (current) use of antithrombotics/antiplatelets; Z79.899 Other long term (current) drug therapy
CPT/HCPCS: 73590; 73620; 99282

== ENCOUNTER 2023-05-14 22:37 | Observation (INO) | payer MEDICARE ==
--- NOTE | 2023-05-14 23:05 | ERPHSYRPT ---
- History of Present Illness Time Seen by Provider: 05/14/23 23:13 Historian: patient Exam Limitations: no limitations Physician History: Patient is a 62-year-old female history of diabetes, hypertension, 5 cardiac stents, chronic renal sufficiency presents to our ED for evaluation of chest pain that started approximately 4 hours prior to arrival. Pain described as a p ressure sensation that radiates to her left shoulder left back. Pain is associated with nausea and vomiting. No trauma no fever. Symptoms are moderate in intensity. Symptoms are worse with activity. Patient has not taken any nitro or aspirin prior to arrival. Patient's rand tacker is . Daughter at bedside. They voiced no other complaints or concerns at this time. Portions of this note were created with voice recognition technology. There may be grammatical, spelling, punctuation or sound alike errors Timing/Duration: today Activities at Onset: none Quality: pressure Location: substernal Chest Pain Radiation: arm, back Severity of Pain-Max: moderate Severity of Pain-Current: mild Modifying Factors: Improves With: nothing Associated Symptoms: nausea, vomiting Prior Chest Pain/Cardiac Workup: cardiac cath Nitro Today/Relief: no nitro taken today Aspirin Treatment Today: no aspirin today Allergies/Adverse Reactions: No Known Drug Allergies Allergy (Verified 05/14/23 22:38) Home Medications: Atorvastatin Calcium 20 mg PO DAILY 09/12/20 [History] Ergocalciferol (Vitamin D2) [Vitamin D] 50,000 unit PO WEEKLY 09/12/20 [History] clonazePAM [Clonazepam] 0.5 mg PO DAILY PRN PRN 09/06/21 [History] Nitroglycerin 0.4 mg SL UD PRN 08/19/22 [History] PANTOPRAZOLE 40 mg Tablet [Protonix 40MG Tablet] 40 mg PO DAILY 08/19/22 [History] Clonidine HCl 0.1 mg [Clonidine 0.1 mg Tablet] 0.2 mg PO BID 05/15/23 [History] Famotidine 20 mg PO BID 05/15/23 [History] Olmesartan/Hydrochlorothiazide [Olmesartan-Hctz 40-25 mg Tab] 1 each PO DAILY 05/15/23 [History] Omeprazole 40 mg PO DAILY 05/15/23 [History] Semaglutide [Ozempic] 4 mg SQ WEEKLY 05/15/23 [History] Spironolactone 50 mg PO DAILY 05/15/23 [History] Hx Tetanus, Diphtheria Vaccination/Date Given: Yes Hx Influenza Vaccination/Date Given: Yes Hx Pneumococcal Vaccination/Date Given: Yes Travel Risk - Vaccine Status Have you recieved a Covid-19 vaccination: Yes Coach Wirer: Moderna - Vaccination Dates Date of 2cond Vaccination (if applicable): 02/2021 - Review of Systems Constitutional: No Symptoms, No Fever, No Chills Eyes: No Symptoms Ears, Nose, & Throat: No Symptoms Respiratory: No Symptoms, No Cough, No Dyspnea Cardiac: No Symptoms, No Chest Pain, No Edema, No Syncope Abdominal/Gastrointestinal: No Symptoms, No Abdominal Pain, No Nausea, No Vomiting, No Diarrhea Genitourinary Symptoms: No Symptoms, No Dysuria Musculoskeletal: No Symptoms, No Back Pain, No Neck Pain Skin: No Symptoms, No Rash Neurological: No Symptoms, No Dizziness, No Focal Weakness, No Sensory Changes Psychological: No Symptoms Endocrine: No Symptoms Hematologic/Lymphatic: No Symptoms Immunological/Allergic: No Symptoms All Other Systems: Reviewed and Negative - Past Medical History Pertinent Past Medical History: Yes Neurological History: No Pertinent History ENT History: No Pertinent History Cardiac History: Arrhythmia, Coronary Artery Disease, High Cholesterol, Hypertension, Myocardial Infarction ([place]) Respiratory History: Sleep Apnea Endocrine Medical History: Diabetes Type II Musculoskeletal History: No Pertinent History GI Medical History: GERD, Gallbladder Disease History: No Pertinent History Psycho-Social History: Depression Female Reproductive Disorders: No Pertinent History Other Medical History: UTI - Past Surgical History Past Surgical History: Yes Neuro Surgical History: No Pertinent History Cardiac: Cardiac Catheterization, Cardiac Stent Respiratory: No Pertinent History Gastrointestinal: Cholecystectomy Genitourinary: No Pertinent History Musculoskeletal: Orthopedic Surgery Female Surgical History: Hysterectomy, Tubal Ligation Other Surgical History: colonoscopy,EGD two yrs ago (GERD) exploratory lap - neg., left foot fx with plate placed March 2020 - Social History Smoking Status: Never smoker Exposure to second hand smoke: Yes Drug Use: none Patient Lives Alone: No Significant Family History: no pertinent family hx - Nursing Vital Signs Nursing Vital Signs: Initial Vital Signs Temperature 98.7 F 05/14/23 22:38 Pulse Rate 71 05/14/23 22:38 Respiratory Rate 22 05/14/23 22:38 Blood Pressure 133/68 05/14/23 22:38 O2 Sat by Pulse Oximetry 100 05/14/23 22:38 Pain Scale Pain Intensity 0 - Physical Exam General Appearance: no apparent distress, alert Eye Exam: PERRL/EOMI, eyes nml inspection Ears, Nose, Throat Exam: normal ENT inspection, TMs normal, pharynx normal, moist mucous membranes Neck Exam: normal inspection, non-tender, supple, full range of motion Respiratory Exam: normal breath sounds, lungs clear, airway intact, No respiratory distress Cardiovascular Exam: regular rate/rhythm, normal heart sounds, normal peripheral pulses Gastrointestinal/Abdomen Exam: soft, No tenderness, No mass Back Exam: normal inspection, No CVA tenderness, No vertebral tenderness Extremity Exam: normal inspection, normal range of motion Neurologic Exam: alert, oriented x 3, cooperative, normal mood/affect, sensation nml, No motor deficits Skin Exam: normal color, warm, dry Lymphatic Exam: No adenopathy SpO2 Interpretation: normal SpO2: 99 O2 Delivery: Room Air - Course Nursing assessment & vital signs reviewed: Yes EKG Interpreted by Me: RATE (68), Sinus Rhythm, NORMAL AXIS, NORMAL INTERVALS - Radiology Exams Chest X-ray Interpretation: Interpreted by me (No acute pathology) Ordered Tests: Active Orders 24 hr Category Date Time Status Bedrest ROUTINE Activity 05/15/23 01:48 Active Call Admit Doctor for Orders ON ADMISSION Care 05/15/23 01:48 Active Geothermal Powerplant 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 STAT Care 05/14/23 22:46 Completed Code Status Order ROUTINE Care 05/15/23 01:48 Active EKG-ER Only STAT Care 05/14/23 22:45 Completed IV Insertion STAT Care 05/14/23 22:[address] in Observation ROUTINE Care 05/15/23 01:48 Active Pulse Oximetry (ED) STAT Care 05/14/23 22:45 Completed Telemetry q6h Care 05/15/23 01:48 Active Consistent Carbohydrate Diet 1800 Calorie Diet 05/15/23 Breakfast Active CHEST 1 VIEW (PORTABLE) Stat Exams 05/15/23 01:35 Stop Req CBC W DIFF Stat Lab 05/14/23 22:50 Completed CMP Stat Lab 05/14/23 22:50 Completed D-DIMER QUANTITATIVE Stat Lab 05/14/23 22:50 Completed NT PRO BNPII Stat Lab 05/14/23 22:50 Completed TROPONIN Q4H Lab 05/14/23 22:50 Completed TROPONIN Q4H Lab 05/15/23 02:45 Ordered TROPONIN Q4H Lab 05/15/23 06:45 Ordered Pulse Oximetry CONTINUOUS RT 05/15/23 01:48 Active Transfer Order Routine Transfer 05/15/23 Completed Medication Summary Discontinued Medications Generic Name Dose Route Start Last Admin Trade Name Freq PRN Reason Stop Dose Admin Aspirin 324 mg 05/14/23 23:21 05/14/23 23:43 Aspirin 81 Mg Tab.Chew PO 05/14/23 23:22 324 mg STAT ONE Administration Aspirin Confirm 05/14/23 23:42 Aspirin 81 Mg Tab.Chew Administered 05/14/23 23:43 Dose 324 mg .ROUTE .STK-MED ONE Nitroglycerin 1 gm 05/14/23 23:22 05/14/23 23:43 Nitroglycerin 1 Gm Packet TOP 05/14/23 23:23 1 gm STAT ONE Administration Nitroglycerin Confirm 05/14/23 23:42 Nitroglycerin 1 Gm Packet Administered 05/14/23 23:43 Dose 1 gm .ROUTE .STK-MED ONE Lab/Rad Data: Laboratory Result Diagrams 05/14/23 22:50 05/14/23 22:50 Laboratory Results 05/14/23 05/14/23 05/14/23 Range/Units 22:50 22:50 22:50 WBC (4.0-10.5) x10^3/uL RBC (4.1-5.4) x10^6/uL Hgb (12.0-16.0) g/dL Hct (35-47) % MCV (78-100) fL MCH (26-32) pg MCHC (32-36) g/dL RDW (11.5-14.0) % Plt Count (150-450) x10^3/uL MPV (7.5-11.0) fL Gran % (36.0-66.0) % Immature Gran % (Auto) (0.00-0.4) % Nucleat RBC Rel Count (0.00-0.1) % Eos # (Auto) (0-0.5) x10^3/uL Immature Gran # (Auto) (0.00-0.03) x10^3u/L Absolute Lymphs (auto) (1.0-4.6) x10^3/uL Absolute Monos (auto) (0.0-1.3) x10^3/uL Absolute Nucleated RBC (0.00-0.01) x10^3u/L Lymphocytes % (24.0-44.0) % Monocytes % (0.0-12.0) % Eosinophils % (0.00-5.0) % Basophils % (0.0-0.4) % Absolute Granulocytes (1.4-6.9) x10^3/uL Basophils # (0-0.4) x10^3/uL D-Dimer < 0.19 (0.0-0.50) mg/L Sodium 135 L (137-145) mmol/L Potassium 3.5 (3.5-5.1) mmol/L Chloride 100 (98-107) mmol/L Carbon Dioxide 27 (22-30) mmol/L Anion Gap 11.0 (5-15) MEQ/L BUN 12 (7-17) mg/dL Creatinine 1.01 (0.52-1.04) mg/dL Estimated GFR 59.2 ML/MIN Glucose 124 H (74-106) mg/dL Calcium 9.4 (8.4-10.2) mg/dL Total Bilirubin 0.50 (0.2-1.3) mg/dL AST 22 (14-36) U/L ALT 20 (0-35) U/L Alkaline Phosphatase 64 (38-126) U/L Troponin I < 0.012 (0.000-0.034) ng/mL NT-Pro-B Natriuret Pep < 20.0 (<300) pg/mL Serum Total Protein 6.8 (6.3-8.2) g/dL Albumin 4.1 (3.5-5.0) g/dL 05/14/23 Range/Units 22:50 WBC 7.3 (4.0-10.5) x10^3/uL RBC 4.15 (4.1-5.4) x10^6/uL Hgb 12.9 (12.0-16.0) g/dL Hct 38.4 (35-47) % MCV 92.5 (78-100) fL MCH 31.1 (26-32) pg MCHC 33.6 (32-36) g/dL RDW 11.4 L (11.5-14.0) % Plt Count 227 (150-450) x10^3/uL MPV 9.9 (7.5-11.0) fL Gran % 54.9 (36.0-66.0) % Immature Gran % (Auto) 0.3 (0.00-0.4) % Nucleat RBC Rel Count 0.0 (0.00-0.1) % Eos # (Auto) 0.16 (0-0.5) x10^3/uL Immature Gran # (Auto) 0.02 (0.00-0.03) x10^3u/L Absolute Lymphs (auto) 2.49 (1.0-4.6) x10^3/uL Absolute Monos (auto) 0.53 (0.0-1.3) x10^3/uL Absolute Nucleated RBC 0.00 (0.00-0.01) x10^3u/L Lymphocytes % 34.3 (24.0-44.0) % Monocytes % 7.3 (0.0-12.0) % Eosinophils % 2.2 (0.00-5.0) % Basophils % 1.0 (0.0-0.4) % Absolute Granulocytes 3.99 (1.4-6.9) x10^3/uL Basophils # 0.07 (0-0.4) x10^3/uL D-Dimer (0.0-0.50) mg/L Sodium (137-145) mmol/L Potassium (3.5-5.1) mmol/L Chloride (98-107) mmol/L Carbon Dioxide (22-30) mmol/L Anion Gap (5-15) MEQ/L BUN (7-17) mg/dL Creatinine (0.52-1.04) mg/dL Estimated GFR ML/MIN Glucose (74-106) mg/dL Calcium (8.4-10.2) mg/dL Total Bilirubin (0.2-1.3) mg/dL AST (14-36) U/L ALT (0-35) U/L Alkaline Phosphatase (38-126) U/L Troponin I (0.000-0.034) ng/mL NT-Pro-B Natriuret Pep (<300) pg/mL Serum Total Protein (6.3-8.2) g/dL Albumin (3.5-5.0) g/dL - Progress Progress: improved Air Movement: good Progress Note: Patient is a 62-year-old female with a significant cardiac history presents to our ED for evaluation of chest pain nausea vomiting. EKG normal sinus rhythm. Chest x-ray shows no acute pathology. CBC CMP within normal limits. D-dimer negative. Initial troponin negative. Patient received aspirin and nitro in our ED. Patient's heart score is 4 patient will be admitted for further evaluation and treatment. Case discussed with Dr. Medina at 1:33am Dr Medina accepts admission to observation. Plan of care discussed with patient. She agrees to admission at [facility] for further evaluation and treat ment. Portions of this note were created with voice recognition technology. There may be grammatical, spelling, punctuation or sound alike errors Complexity problems addressed is moderate acute complicated No critical care time Complex of data reviewed and analyzed is extensive. Test ordered. Test reviewed and analyzed. Clinical correlation made between findings of imaging study, laboratory studies and history and physical examination. Plan of care discussed with hospitalist Dr. Medina who accepts admission to observation. Risk of complication and or risk of morbidity/mortality of patient management is high. Patient requires hospitalization for further evaluation and treatment of chest pain Vital stable. Plan of care established for shared decision making. Time spent admit patient is approximately 15 minutes. 05/15/23 01:57 Blood Culture(s) Obtained: No Antibiotics given: No Counseled pt/family regarding: lab results, diagnosis, need for follow-up - Departure Departure Disposition: Observation Clinical Impression: Chest pain, ACS (acute coronary syndrome), Nausea and vomiting Condition: Stable Critical Care Time: No
[2023-05-14] MEDS ORDERED: BABY ASPIRIN 81 MG CHEW PO ONE (23:21)
[2023-05-14] MEDS ORDERED: NITRO-BID 2% UD PACKETS TOP ONE (23:22)
[2023-05-14 23:25] LABS: Absolute Neutrophil Ct (ANC) 3.99 x10^3/uL (1.4-6.9); Basophil (Absolute #) 0.07 x10^3/uL (0-0.4); Eosinophil % 2.2 % (0.00-5.0); Eosinophil (Absolute #) 0.16 x10^3/uL (0-0.5); Hematocrit 38.4 % (35-47); Hemoglobin 12.9 g/dL (12.0-16.0); IMMATURE GRAN # 0.02 x10^3u/L (0.00-0.03); IMMATURE GRAN % 0.3 % (0.00-0.4); Lymphocyte (Absolute #) 2.49 x10^3/uL (1.0-4.6); Lymphocytes % 34.3 % (24.0-44.0); Mean Cell Volume 92.5 fL (78-100); Mean Corpuscular Hemoglobin 31.1 pg (26-32); Mean Corpuscular Hgb Concent. 33.6 g/dL (32-36); Mean Platelet Volume 9.9 fL (7.5-11.0); Monocyte (Absolute #) 0.53 x10^3/uL (0.0-1.3); Monocytes % 7.3 % (0.0-12.0); Neutrophil % 54.9 % (36.0-66.0); Platelet Count 227 x10^3/uL (150-450); Red Blood Count 4.15 x10^6/uL (4.1-5.4); Red Cell Distribution Width 11.4 % (11.5-14.0); White Blood Count 7.3 x10^3/uL (4.0-10.5)
[2023-05-14] MEDS ORDERED: NITRO-BID 2% UD PACKETS ONE (23:42)
[2023-05-14] MEDS ORDERED: BABY ASPIRIN 81 MG CHEW ONE (23:42)
[2023-05-15 00:03] LABS: ALBUMIN 4.1 g/dL (3.5-5.0); ALKALINE PHOSPHATASE 64 U/L (38-126); BLOOD UREA NITROGEN 12 mg/dL (7-17); CHLORIDE 100 mmol/L (98-107); Calcium 9.4 mg/dL (8.4-10.2); Carbon Dioxide 27 mmol/L (22-30); Creatinine 1 1.01 mg/dL (0.52-1.04); EST GLOMERULAR FILTRATION RATE 59.2 ML/MIN; Glucose 124 mg/dL (74-106); Potassium 3.5 mmol/L (3.5-5.1); SGOT/AST 22 U/L (14-36); SGPT/ALT 20 U/L (0-35); SODIUM 135 mmol/L (137-145); TROPONIN < 0.012 ng/mL (0.000-0.034); Total Protein 6.8 g/dL (6.3-8.2)
--- NOTE | 2023-05-15 02:27 | XRAY ---
CLINICAL HISTORY:pain COMPARISON:07/15/2022 TECHNIQUE:X ray of the chest, AP view. FINDINGS: Multiple chest leads were applied. Radiographic examination of the chest demonstrates clear lungs. The costophrenic and cardiophrenic angles are clear. No evidence of pneumothorax. Mediastinum and heart size cannot be commented due to the portable projection. The bony thorax is unremarkable. IMPRESSION: Unremarkable chest radiograph. No significant interval change from prior study. Electronically Signed by: Marcelo Caraballo MD. (05/15/2023 01:26:11 [employer]ODY AND [employer]END[employer]CH[employer]IC)
[2023-05-15] MEDS ORDERED: Nitrostat 0.4 MG Tablet SL PRN (02:50)
[2023-05-15] MEDS ORDERED: NON-FORMULARY ITEM (Clonazepam [Clonazepam] 0.5 MG Tab.Rapdis) PO PRN (02:50)
[2023-05-15] MEDS ORDERED: HUMALOG SQ PRN (02:52)
[2023-05-15] MEDS ORDERED: NON-FORMULARY ITEM (Semaglutide [Ozempic] 2 MG/0.75 ML Pen.Injctr) SQ SCH (03:00)
--- NOTE | 2023-05-15 03:01 | PCM.HP ---
History of Present Illness - Chief Complaint Chief Complaint: Chest pain History of Present Illness: 62 yo wf with hx of CAD, DM presents with chest pain. Pt states she has noted back pain mainly on the left upper back to the left of midline. She denies straining or injury. She experiences for 3 days then noticed pain on front side. Would occur for 15-20 minutes and subside and return. Some association with n/v. No sob. No radiation. States this pain similar to prior episodes when she requi red a stent(denies having an OR). Recently has not had angina with exertion. Patient admitted for rule out. - Review of Systems Constitutional: No Symptoms Eyes: No Symptoms Ears, Nose, & Throat: No Symptoms Respiratory: No Symptoms Cardiac: Chest Pain Abdominal/Gastrointestinal: No Symptoms Genitourinary Symptoms: No Symptoms Musculoskeletal: Back Pain Skin: No Symptoms Neurological: No Symptoms Psychological: No Symptoms Endocrine: No Symptoms Hematologic/Lymphatic: No Symptoms Medications & Allergies Home Medications: Home Medication List Atorvastatin Calcium 20 mg PO DAILY 09/12/20 [History Confirmed 05/15/23] Ergocalciferol (Vitamin D2) [Vitamin D] 50,000 unit PO WEEKLY 09/12/20 [History Confirmed 05/15/23] clonazePAM [Clonazepam] 0.5 mg PO DAILY PRN PRN 09/06/21 [History Confirmed 05/15/23] Nitroglycerin 0.4 mg SL UD PRN 08/19/22 [History Confirmed 05/15/23] PANTOPRAZOLE 40 mg Tablet [Protonix 40MG Tablet] 40 mg PO DAILY 08/19/22 [History Confirmed 05/15/23] Clonidine HCl 0.1 mg [Clonidine 0.1 mg Tablet] 0.2 mg PO BID 05/15/23 [History Confirmed 05/15/23] Famotidine 20 mg PO BID 05/15/23 [History Confirmed 05/15/23] Olmesartan/Hydrochlorothiazide [Olmesartan-Hctz 40-25 mg Tab] 1 each PO DAILY 05/15/23 [History Confirmed 05/15/23] Omeprazole 40 mg PO DAILY 05/15/23 [History Confirmed 05/15/23] Semaglutide [Ozempic] 2 mg SQ WEEKLY 05/15/23 [History Confirmed 05/15/23] Spironolactone 50 mg PO DAILY 05/15/23 [History Confirmed 05/15/23] Allergies/Adverse Reactions: Allergies Allergy/AdvReac Type Severity Reaction Status Date / Time No Known Drug Allergies Allergy Verified 05/14/23 22:38 - Past Medical History Past Medical History: Yes Neurological History: No Pertinent History ENT History: No Pertinent History Cardiac History: Arrhythmia, Coronary Artery Disease, High Cholesterol, Hypertension, Myocardial Infarction (OR) Respiratory History: Sleep Apnea Endocrine Medical History: Diabetes Type II Musculoskelatal History: No Pertinent History GI Medical History: GERD, Gallbladder Disease History: No Pertinent History Pyscho-Social History: Depression Reproductive Disorders: No Pertinent History Comment: UTI - Past Surgical History Past Surgical History: Yes Neuro Surgical History: No Pertinent History Cardiac History: Cardiac Catheterization, Cardiac Stent Respiratory Surgery: No Pertinent History GI Surgical History: Cholecystectomy Genitourinary Surgical Hx: No Pertinent History Musculskeletal Surgical Hx: Orthopedic Surgery Female Surgical History: Hysterectomy, Tubal Ligation Other Surgical History: colonoscopy,EGD two yrs ago (GERD) exploratory lap - neg., left foot fx with plate placed March 2020 - Social History Smoking Status: Never smoker Exposure to second hand smoke: Yes Alcohol: None Drug Use: none Significant Family History: no pertinent family hx - Physical Exam Vital Signs: Vital Signs - 24 hr Temp Pulse Pulse Resp BP BP Pulse Ox 05/15/23 02:02 99 05/15/23 01:43 98.7 F 71 19 135/67 93 L 05/15/23 01:00 78 18 102/67 102/67 93 L 05/15/23 00:30 69 15 104/66 93 L 05/15/23 00:00 74 15 103/70 93 L 05/14/23 23:30 68 14 106/68 100 05/14/23 23:23 74 19 107/66 96 05/14/23 23:01 70 16 133/68 95 05/14/23 22:48 99 05/14/23 22:38 98.7 F 71 74 22 133/68 100 General Appearance: no apparent distress Neurologic Exam: alert, oriented x 3 Eye Exam: PERRL/EOMI, eyes nml inspection Ears, Nose, Throat Exam: normal ENT inspection Neck Exam: normal inspection Respiratory Exam: normal breath sounds Cardiovascular Exam: regular rate/rhythm, normal heart sounds, No murmur Gastrointestinal/Abdomen Exam: soft, normal bowel sounds, No tenderness Back Exam: point tenderness (over left scapular=) Extremity Exam: normal inspection, normal range of motion Skin Exam: normal color, warm Results - Labs Lab/Micro Results: Lab Results-Last 24 Hours 05/14/23 05/14/23 05/14/23 Range/Units 22:50 22:50 22:50 WBC 7.3 (4.0-10.5) x10^3/uL RBC 4.15 (4.1-5.4) x10^6/uL Hgb 12.9 (12.0-16.0) g/dL Hct 38.4 (35-47) % MCV 92.5 (78-100) fL MCH 31.1 (26-32) pg MCHC 33.6 (32-36) g/dL RDW 11.4 L (11.5-14.0) % Plt Count 227 (150-450) x10^3/uL MPV 9.9 (7.5-11.0) fL Gran % 54.9 (36.0-66.0) % Immature Gran % (Auto) 0.3 (0.00-0.4) % Nucleat RBC Rel Count 0.0 (0.00-0.1) % Eos # (Auto) 0.16 (0-0.5) x10^3/uL Immature Gran # (Auto) 0.02 (0.00-0.03) x10^3u/L Absolute Lymphs (auto) 2.49 (1.0-4.6) x10^3/uL Absolute Monos (auto) 0.53 (0.0-1.3) x10^3/uL Absolute Nucleated RBC 0.00 (0.00-0.01) x10^3u/L Lymphocytes % 34.3 (24.0-44.0) % Monocytes % 7.3 (0.0-12.0) % Eosinophils % 2.2 (0.00-5.0) % Basophils % 1.0 (0.0-0.4) % Absolute Granulocytes 3.99 (1.4-6.9) x10^3/uL Basophils # 0.07 (0-0.4) x10^3/uL D-Dimer < 0.19 (0.0-0.50) mg/L Sodium 135 L (137-145) mmol/L Potassium 3.5 (3.5-5.1) mmol/L Chloride 100 (98-107) mmol/L Carbon Dioxide 27 (22-30) mmol/L Anion Gap 11.0 (5-15) MEQ/L BUN 12 (7-17) mg/dL Creatinine 1.01 (0.52-1.04) mg/dL Estimated GFR 59.2 ML/MIN Glucose 124 H (74-106) mg/dL Calcium 9.4 (8.4-10.2) mg/dL Total Bilirubin 0.50 (0.2-1.3) mg/dL AST 22 (14-36) U/L ALT 20 (0-35) U/L Alkaline Phosphatase 64 (38-126) U/L Troponin I < 0.012 (0.000-0.034) ng/mL NT-Pro-B Natriuret Pep (<300) pg/mL Serum Total Protein 6.8 (6.3-8.2) g/dL Albumin 4.1 (3.5-5.0) g/dL 05/14/23 Range/Units 22:50 WBC (4.0-10.5) x10^3/uL RBC (4.1-5.4) x10^6/uL Hgb (12.0-16.0) g/dL Hct (35-47) % MCV (78-100) fL MCH (26-32) pg MCHC (32-36) g/dL RDW (11.5-14.0) % Plt Count (150-450) x10^3/uL MPV (7.5-11.0) fL Gran % (36.0-66.0) % Immature Gran % (Auto) (0.00-0.4) % Nucleat RBC Rel Count (0.00-0.1) % Eos # (Auto) (0-0.5) x10^3/uL Immature Gran # (Auto) (0.00-0.03) x10^3u/L Absolute Lymphs (auto) (1.0-4.6) x10^3/uL Absolute Monos (auto) (0.0-1.3) x10^3/uL Absolute Nucleated RBC (0.00-0.01) x10^3u/L Lymphocytes % (24.0-44.0) % Monocytes % (0.0-12.0) % Eosinophils % (0.00-5.0) % Basophils % (0.0-0.4) % Absolute Granulocytes (1.4-6.9) x10^3/uL Basophils # (0-0.4) x10^3/uL D-Dimer (0.0-0.50) mg/L Sodium (137-145) mmol/L Potassium (3.5-5.1) mmol/L Chloride (98-107) mmol/L Carbon Dioxide (22-30) mmol/L Anion Gap (5-15) MEQ/L BUN (7-17) mg/dL Creatinine (0.52-1.04) mg/dL Estimated GFR ML/MIN Glucose (74-106) mg/dL Calcium (8.4-10.2) mg/dL Total Bilirubin (0.2-1.3) mg/dL AST (14-36) U/L ALT (0-35) U/L Alkaline Phosphatase (38-126) U/L Troponin I (0.000-0.034) ng/mL NT-Pro-B Natriuret Pep < 20.0 (<300) pg/mL Serum Total Protein (6.3-8.2) g/dL Albumin (3.5-5.0) g/dL - Radiology Impressions Radiology Exams & Impressions: Radiology Procedures Category Date Time Status CHEST 1 VIEW (PORTABLE) Stat Exams 05/15/23 01:35 Completed SCAPULA Routine Exams 05/15/23 02:53 Ordered Assessment/Plan (1) Chest pain Current Visit: Yes Status: Acute Assessment & Plan: 1. Chest pain: atypical. Associated with back pain as well. Prolonged periods of CP with no elevation of cardiac enzymes. No ECG changes. Recent cath 6 months ago. Continue asa. Continue rule out. RPP well controlled. 2. Back pain: pain on scapula. Check Xray. 3. DM: Continue SS 4. FEN: oral diet 5. HTN: continue clonidine. 6. PX: pt is mobile. Sonny Medina MD entire encounter done via telemedicine Code(s): R07.9 - CHEST PAIN, UNSPECIFIED Telemedicine Encounter - Telemedicine Encounter Telemedicine Encounter: The entirety of this encounter was performed via Telemedicine"
[2023-05-15 03:48] VITALS: RESP 16
--- NOTE | 2023-05-15 04:42 | XRAY ---
CLINICAL HISTORY:left scapula pain COMPARISON:None. TECHNIQUE:X-ray left scapula AP, lateral views. FINDINGS: No fracture seen. Osteoarthritis of the acromioclavicular joint with narrowing joint space and marginal osteophytes. Normal bone density. No lytic or sclerotic bony lesions. Soft tissues are normal. IMPRESSION: No acute fracture seen. Osteoarthritis of the acromioclavicular joint with narrowing joint space and marginal osteophytes. DISCLAIMER:A subtle bone abnormality or fracture may not be readily apparent on x-rays, thus clinical correlation and further imaging including follow up CT, MRI, or follow up x-rays are advised as needed. Electronically Signed by: Marcelo Craaballo MD. (05/15/2023 03:41:47 [employer])
[2023-05-15 07:13] VITALS: TEMP 97.8; O2SAT 94
[2023-05-15] MEDS ORDERED: clonazePAM PO PRN (07:37)
[2023-05-15] MEDS ORDERED: MEDICATION INTERVENTION MC SCH (07:45)
[2023-05-15] MEDS ORDERED: Pain Relieving Rub TOP SCH (09:15)
[2023-05-15 09:23] VITALS: BP 105/60; PULSE 82
[2023-05-15] MEDS ORDERED: ECOTRIN 81 MG PO SCH (10:00)
[2023-05-15] MEDS ORDERED: Aldactone 25 MG PO SCH (10:00)
[2023-05-15] MEDS ORDERED: HYDROCHLOROTHIAZIDE PO SCH (10:00)
[2023-05-15] MEDS ORDERED: NON-FORMULARY ITEM (Atorvastatin Calcium [Atorvastatin Calcium] 10 MG Tablet) PO SCH (10:00)
[2023-05-15] MEDS ORDERED: Benicar 20 MG PO SCH (10:00)
[2023-05-15] MEDS ORDERED: OLMESARTAN PO SCH (10:00)
[2023-05-15] MEDS ORDERED: BABY ASPIRIN 81 MG CHEW PO SCH (10:00)
[2023-05-15] MEDS ORDERED: NON-FORMULARY ITEM (Spironolactone [Spironolactone] 50 MG Tablet) PO SCH (10:00)
[2023-05-15] MEDS ORDERED: Protonix 40MG Tablet PO SCH ×2 (10:00)
[2023-05-15] MEDS ORDERED: Pepcid 20 MG PO SCH (10:00)
[2023-05-15] MEDS ORDERED: hydroDIURIL 25 MG PO SCH (10:00)
[2023-05-15] MEDS ORDERED: [UNRECOGNIZED DRUG - OTHER] PO SCH (10:00)
[2023-05-15] MEDS ORDERED: NON-FORMULARY ITEM (Omeprazole [Omeprazole] 40 MG Capsule.Dr) PO SCH (10:00)
[2023-05-15] MEDS ORDERED: CLONIDINE 0.1 MG TABLET PO SCH (10:00)
--- NOTE | 2023-05-15 10:26 | PCM.DS ---
Discharge Summary Date of Admission: 05/15/23 01:43 Date of Discharge: 05/15/23 Admitting Physician: HOME RUTHERFORD MD Primary Care Provider: RAVEN FLORES Allergies Allergies No Known Drug Allergies Allergy (Verified 05/14/23 22:38) Hospital Summary - Hospital Course Hospital Course: 05/14/23 62 yo wf with hx of CAD, DM presents with chest pain. Pt states she has noted back pain mainly on the left upper back to the left of midline. She denies straining or injury. She experiences for 3 days then noticed pain on front side. Would occur for 15-20 minutes and subside and return. Some association with n/v. No sob. No radiation. States this pain similar to prior episodes when she required a stent(denies having an HI). Recently has not had angina with exertion. Patient admitted for rule out. 05/15/23 Pt resting in bed. She has no complaints of CP. Trop x 3 negative. She continues to have some left scapular pain with palpation only. XR of left shoulder shows some OA. Started some muscle rub for pain. She can also use supportive care for pain such as tylenol or a heating pad at home. She is wanting to go home today. She follows Dr. De Souza and would like to f/u OP. She denies CP, SOB, Abd. pain, N/V/D. - Vitals & Intake/Output Vital Signs: Vital Signs Temperature 97.8 F 05/15/23 07:11 Pulse Rate 82 05/15/23 09:22 Respiratory Rate 16 05/15/23 07:11 Blood Pressure 105/60 05/15/23 09:22 O2 Sat by Pulse Oximetry 94 L 05/15/23 07:11 Intake & Output: Intake & Output 05/12/23 05/13/23 05/14/23 05/15/23 11:59 11:59 11:59 11:59 Intake Total 100 Balance 100 Weight 75.5 kg - Lab Result Diagrams: 05/14/23 22:50 05/14/23 22:50 Lab Results-Last 24 Hrs: Lab Results-Last 24 Hours 05/14/23 05/14/23 05/14/23 Range/Units 22:50 22:50 22:50 WBC 7.3 (4.0-10.5) x10^3/uL RBC 4.15 (4.1-5.4) x10^6/uL Hgb 12.9 (12.0-16.0) g/dL Hct 38.4 (35-47) % MCV 92.5 (78-100) fL MCH 31.1 (26-32) pg MCHC 33.6 (32-36) g/dL RDW 11.4 L (11.5-14.0) % Plt Count 227 (150-450) x10^3/uL MPV 9.9 (7.5-11.0) fL Gran % 54.9 (36.0-66.0) % Immature Gran % (Auto) 0.3 (0.00-0.4) % Nucleat RBC Rel Count 0.0 (0.00-0.1) % Eos # (Auto) 0.16 (0-0.5) x10^3/uL Immature Gran # (Auto) 0.02 (0.00-0.03) x10^3u/L Absolute Lymphs (auto) 2.49 (1.0-4.6) x10^3/uL Absolute Monos (auto) 0.53 (0.0-1.3) x10^3/uL Absolute Nucleated RBC 0.00 (0.00-0.01) x10^3u/L Lymphocytes % 34.3 (24.0-44.0) % Monocytes % 7.3 (0.0-12.0) % Eosinophils % 2.2 (0.00-5.0) % Basophils % 1.0 (0.0-0.4) % Absolute Granulocytes 3.99 (1.4-6.9) x10^3/uL Basophils # 0.07 (0-0.4) x10^3/uL D-Dimer < 0.19 (0.0-0.50) mg/L Sodium 135 L (137-145) mmol/L Potassium 3.5 (3.5-5.1) mmol/L Chloride 100 (98-107) mmol/L Carbon Dioxide 27 (22-30) mmol/L Anion Gap 11.0 (5-15) MEQ/L BUN 12 (7-17) mg/dL Creatinine 1.01 (0.52-1.04) mg/dL Estimated GFR 59.2 ML/MIN Glucose 124 H (74-106) mg/dL POC Glucometer (74 to 106) mg/dL Hemoglobin A1c (4.5-6.0) % Calcium 9.4 (8.4-10.2) mg/dL Total Bilirubin 0.50 (0.2-1.3) mg/dL AST 22 (14-36) U/L ALT 20 (0-35) U/L Alkaline Phosphatase 64 (38-126) U/L Troponin I < 0.012 (0.000-0.034) ng/mL NT-Pro-B Natriuret Pep (<300) pg/mL Serum Total Protein 6.8 (6.3-8.2) g/dL Albumin 4.1 (3.5-5.0) g/dL 05/14/23 05/15/23 05/15/23 Range/Units 22:50 00:00 02:42 WBC (4.0-10.5) x10^3/uL RBC (4.1-5.4) x10^6/uL Hgb (12.0-16.0) g/dL Hct (35-47) % MCV (78-100) fL MCH (26-32) pg MCHC (32-36) g/dL RDW (11.5-14.0) % Plt Count (150-450) x10^3/uL MPV (7.5-11.0) fL Gran % (36.0-66.0) % Immature Gran % (Auto) (0.00-0.4) % Nucleat RBC Rel Count (0.00-0.1) % Eos # (Auto) (0-0.5) x10^3/uL Immature Gran # (Auto) (0.00-0.03) x10^3u/L Absolute Lymphs (auto) (1.0-4.6) x10^3/uL Absolute Monos (auto) (0.0-1.3) x10^3/uL Absolute Nucleated RBC (0.00-0.01) x10^3u/L Lymphocytes % (24.0-44.0) % Monocytes % (0.0-12.0) % Eosinophils % (0.00-5.0) % Basophils % (0.0-0.4) % Absolute Granulocytes (1.4-6.9) x10^3/uL Basophils # (0-0.4) x10^3/uL D-Dimer (0.0-0.50) mg/L Sodium (137-145) mmol/L Potassium (3.5-5.1) mmol/L Chloride (98-107) mmol/L Carbon Dioxide (22-30) mmol/L Anion Gap (5-15) MEQ/L BUN (7-17) mg/dL Creatinine (0.52-1.04) mg/dL Estimated GFR ML/MIN Glucose (74-106) mg/dL POC Glucometer (74 to 106) mg/dL Hemoglobin A1c 5.03 (4.5-6.0) % Calcium (8.4-10.2) mg/dL Total Bilirubin (0.2-1.3) mg/dL AST (14-36) U/L ALT (0-35) U/L Alkaline Phosphatase (38-126) U/L Troponin I < 0.012 (0.000-0.034) ng/mL NT-Pro-B Natriuret Pep < 20.0 (<300) pg/mL Serum Total Protein (6.3-8.2) g/dL Albumin (3.5-5.0) g/dL 05/15/23 05/15/23 Range/Units 05:10 07:03 WBC (4.0-10.5) x10^3/uL RBC (4.1-5.4) x10^6/uL Hgb (12.0-16.0) g/dL Hct (35-47) % MCV (78-100) fL MCH (26-32) pg MCHC (32-36) g/dL RDW (11.5-14.0) % Plt Count (150-450) x10^3/uL MPV (7.5-11.0) fL Gran % (36.0-66.0) % Immature Gran % (Auto) (0.00-0.4) % Nucleat RBC Rel Count (0.00-0.1) % Eos # (Auto) (0-0.5) x10^3/uL Immature Gran # (Auto) (0.00-0.03) x10^3u/L Absolute Lymphs (auto) (1.0-4.6) x10^3/uL Absolute Monos (auto) (0.0-1.3) x10^3/uL Absolute Nucleated RBC (0.00-0.01) x10^3u/L Lymphocytes % (24.0-44.0) % Monocytes % (0.0-12.0) % Eosinophils % (0.00-5.0) % Basophils % (0.0-0.4) % Absolute Granulocytes (1.4-6.9) x10^3/uL Basophils # (0-0.4) x10^3/uL D-Dimer (0.0-0.50) mg/L Sodium (137-145) mmol/L Potassium (3.5-5.1) mmol/L Chloride (98-107) mmol/L Carbon Dioxide (22-30) mmol/L Anion Gap (5-15) MEQ/L BUN (7-17) mg/dL Creatinine (0.52-1.04) mg/dL Estimated GFR ML/MIN Glucose (74-106) mg/dL POC Glucometer 98 (74 to 106) mg/dL Hemoglobin A1c (4.5-6.0) % Calcium (8.4-10.2) mg/dL Total Bilirubin (0.2-1.3) mg/dL AST (14-36) U/L ALT (0-35) U/L Alkaline Phosphatase (38-126) U/L Troponin I < 0.012 (0.000-0.034) ng/mL NT-Pro-B Natriuret Pep (<300) pg/mL Serum Total Protein (6.3-8.2) g/dL Albumin (3.5-5.0) g/dL Micro Results-Entire Visit: Accuchecks Date 05/15/23 Time 07:11 - Radiology Exams Ordered Rad Exams-Entire Visit: Radiology Procedures Category Date Time Status CHEST 1 VIEW (PORTABLE) Stat Exams 05/15/23 01:35 Completed SCAPULA Routine Exams 05/15/23 02:53 Completed - Procedures and Test Procedures and Tests throughout Hospitalization: Therapy Orders & Screens 05/15/23 02:23 ST Screen per Nursing Assess ONCE Comment: Protocol Order Physician Instructions: Greater than [address] Admission Screening Reason For Exam: Triggered on Admission Diagnosis: Chest pain, ACS CVA/Dyshpagia/Aphasia: No Cognitive Deficits: No Dehydration/Nutrition Deficit: Yes Reflux: Yes Oral-Motor Difficulties: No Pneumonia: No Long-Term Resident: No Total Points: 8 Discharge Exam General Appearance: no apparent distress, alert Neurologic Exam: alert, oriented x 3, cooperative, normal mood/affect, nml cerebellar function, sensation nml, No motor deficits Eye Exam: PERRL, EOMI, eyes nml inspection Ears, Nose, Throat Exam: normal ENT inspection, pharynx normal, moist mucous membranes Neck Exam: normal inspection, non-tender, supple, full range of motion Respiratory Exam: normal breath sounds, lungs clear, No respiratory distress Cardiovascular Exam: regular rate/rhythm, normal heart sounds Gastrointestinal/Abdomen Exam: soft, No tenderness, No mass Pelvic Exam: deferred Rectal Exam: deferred Back Exam: normal inspection, normal range of motion, point tenderness (Left scapula), No CVA tenderness, No vertebral tenderness Extremity Exam: normal inspection, normal range of motion Skin Exam: normal color, warm, dry Final Diagnosis/Problem List - Final Discharge Diagnosis/Problem (1) Pain of left scapula Current Visit: Yes Status: Acute Assessment & Plan: - XR of left Scapula: No acute fracture seen. Osteoarthritis of the acromioclavicular joint with narrowing joint space and marginal osteophytes Code(s): M89.8X1 - OTHER SPECIFIED DISORDERS OF BONE, SHOULDER (2) Chest pain Current Visit: Yes Status: Acute Assessment & Plan: - trop x3 negative - Denies CP - Follows Dr. De Souza - No ECG changes. - Recent cath 6 months ago. - Continue asa. Code(s): R07.9 - CHEST PAIN, UNSPECIFIED (3) Type II diabetes mellitus Current Visit: Yes Status: Acute Assessment & Plan: - S/S - A1C 5.03 - Controlled (4) Hypertension Current Visit: No Status: Chronic Assessment & Plan: - Controlled - Continue home meds Code(s): I10 - ESSENTIAL (PRIMARY) HYPERTENSION - Discharge Discharge Date: 05/15/23 Disposition: Home, Self-Care Condition: Stable Prescriptions: New Aspirin EC 81 mg [Ecotrin 81 mg] 81 mg PO QAM 30 Days #30 tablet Continue Atorvastatin Calcium 20 mg PO DAILY Ergocalciferol (Vitamin D2) [Vitamin D] 50,000 unit PO WEEKLY clonazePAM [Clonazepam] 0.5 mg PO DAILY PRN PRN PRN Reason: Anxiety Nitroglycerin 0.4 mg SL UD PRN PRN Reason: Chest Pain PANTOPRAZOLE 40 mg Tablet [Protonix 40MG Tablet] 40 mg PO DAILY Olmesartan/Hydrochlorothiazide [Olmesartan-Hctz 40-25 mg Tab] 1 each PO DAILY Spironolactone 50 mg PO DAILY Omeprazole 40 mg PO DAILY Clonidine HCl 0.1 mg [Clonidine 0.1 mg Tablet] 0.2 mg PO BID Semaglutide [Ozempic] 2 mg SQ WEEKLY Famotidine 20 mg PO BID Follow up with: RAVEN FLORES NP [Primary Care Provider] -
[2023-05-15] MEDS ORDERED: ZOCOR 20MG PO SCH (22:00)
[2023-05-19] MEDS ORDERED: VITAMIN D2 PO SCH (10:00)
== END 2023-05-15 11:52 | disposition home or self-care (01) ==
LOC: ED 22:37 → MED SURG 05-15 01:43
PROVIDERS: ADMIT Internal Medicine Critical Care Medicine; ATTEND Internal Medicine Critical Care Medicine
DX: M25.512 Pain in left shoulder (principal); R07.9 Chest pain, unspecified; E11.9 Type 2 diabetes mellitus without complications; I25.10 Atherosclerotic heart disease of native coronary artery without angina pectoris; I10 Essential (primary) hypertension; E78.5 Hyperlipidemia, unspecified; Z79.899 Other long term (current) drug therapy; Z20.828 Contact with and (suspected) exposure to other viral communicable diseases
CPT/HCPCS: 36000; 36415; 71045; 73010; 80053; 82947; 83036; 83880; 84484; 85025; 85379; 93005; 93041; 94760; 94762; 99285; G0378; A9270-GY

== ENCOUNTER 2023-08-12 12:36 | Emergency (ER) | payer MEDICARE ==
--- NOTE | 2023-08-12 12:41 | ERPHSYRPT ---
- History of Present Illness Time Seen by Provider: 08/12/23 12:41 Source: patient Exam Limitations: no limitations Physician History: This is a diabetic 62-year-old white female patient who has a history of recurrent urinary tract infections as well as diabetes, hyperlipidemia, gastroesophageal reflux disease, coronary artery disease (stent) arrhythmia, hypertension sleep apnea who presents with a 2-day history of mild suprapubic discomfort, mild bilateral flank discomfort, frequency, urgency and dysuria. Patient denies shortness of breath. She denies fevers and chills. She denies chest pain. She has no nausea vomiting or diarrhea symptoms. Timing/Duration: day(s) (2) Activites at Onset: none Quality: burning Onset Location: suprapubic (Mild), generalized flank Severity of Pain-Max: mild Severity of Pain-Current: mild Sexual intercourse history: non-contributory Modifying Factors: Improves With: nothing Associated Symptoms: dysuria, urinary frequency, No fever, No chills, No nausea, No vomiting Allergies/Adverse Reactions: No Known Drug Allergies Allergy (Verified 08/12/23 12:53) Home Medications: Atorvastatin Calcium 20 mg PO DAILY 09/12/20 [History] Ergocalciferol (Vitamin D2) [Vitamin D] 50,000 unit PO WEEKLY 09/12/20 [History] clonazePAM [Clonazepam] 0.5 mg PO DAILY PRN PRN 09/06/21 [History] Nitroglycerin 0.4 mg SL UD PRN 08/19/22 [History] PANTOPRAZOLE 40 mg Tablet [Protonix 40MG Tablet] 40 mg PO DAILY 08/19/22 [History] Clonidine HCl 0.1 mg [Clonidine 0.1 mg Tablet] 0.2 mg PO BID 05/15/23 [History] Famotidine 20 mg PO BID 05/15/23 [History] Olmesartan/Hydrochlorothiazide [Olmesartan-Hctz 40-25 mg Tab] 1 each PO DAILY 05/15/23 [History] Omeprazole 40 mg PO DAILY 05/15/23 [History] Semaglutide [Ozempic] 2 mg SQ WEEKLY 05/15/23 [History] Spironolactone 50 mg PO DAILY 05/15/23 [History] Hx Tetanus, Diphtheria Vaccination/Date Given: Yes Hx Influenza Vaccination/Date Given: Yes Hx Pneumococcal Vaccination/Date Given: Yes Travel Risk - International Travel Have you traveled outside of the country in past 3 weeks: No - Coronavirus Screening Are you exhibiting any of the following symptoms?: No Close contact with a COVID-19 positive Pt in past 14-21 Days: No - Vaccine Status Have you recieved a Covid-19 vaccination: Yes [employer]: Moderna - Vaccination Dates Date of 2cond Vaccination (if applicable): 02/2021 - Review of Systems Constitutional: No Symptoms Eyes: No Symptoms Ears, Nose, & Throat: No Symptoms Respiratory: No Symptoms Cardiac: No Symptoms Abdominal/Gastrointestinal: Abdominal Pain (Mild suprapubic tenderness) Genitourinary Symptoms: Dysuria, Frequency, Urgency, Flank Pain (Mild bilateral) Musculoskeletal: No Symptoms Skin: No Symptoms Neurological: No Symptoms Psychological: No Symptoms Endocrine: No Symptoms Hematologic/Lymphatic: No Symptoms Immunological/Allergic: No Symptoms All Other Systems: Reviewed and Negative - Past Medical History Pertinent Past Medical History: Yes Neurological History: No Pertinent History ENT History: No Pertinent History Cardiac History: Arrhythmia, Coronary Artery Disease, High Cholesterol, Hypertension, Myocardial Infarction ([place]) Respiratory History: Sleep Apnea Endocrine Medical History: Diabetes Type II Musculoskeletal History: No Pertinent History GI Medical History: GERD, Gallbladder Disease History: No Pertinent History Psycho-Social History: Depression Female Reproductive Disorders: No Pertinent History Other Medical History: UTI - Past Surgical History Past Surgical History: Yes Neuro Surgical History: No Pertinent History Cardiac: Cardiac Catheterization, Cardiac Stent Respiratory: No Pertinent History Gastrointestinal: Cholecystectomy Genitourinary: No Pertinent History Musculoskeletal: Orthopedic Surgery Female Surgical History: Hysterectomy, Tubal Ligation Other Surgical History: colonoscopy,EGD two yrs ago (GERD) exploratory lap - neg., left foot fx with plate placed March 2020 - Social History Smoking Status: Never smoker Exposure to second hand smoke: Yes Drug Use: none Patient Lives Alone: No Significant Family History: no pertinent family hx - Nursing Vital Signs Nursing Vital Signs: Initial Vital Signs Temperature 97.4 F 08/12/23 12:53 Pulse Rate 98 H 08/12/23 12:53 Respiratory Rate 18 08/12/23 12:53 Blood Pressure 168/98 08/12/23 12:53 O2 Sat by Pulse Oximetry 98 08/12/23 12:53 Pain Scale Pain Intensity 5 - Physical Exam General Appearance: no apparent distress, alert Eye Exam: PERRL/EOMI, eyes nml inspection Ears, Nose, Throat Exam: normal ENT inspection, moist mucous membranes Neck Exam: normal inspection, non-tender, supple, full range of motion Respiratory Exam: normal breath sounds, lungs clear, airway intact, No chest tenderness, No respiratory distress Cardiovascular Exam: regular rate/rhythm, normal heart sounds, normal peripheral pulses Gastrointestinal/Abdomen Exam: soft, normal bowel sounds, tenderness (Mild suprapubic to palpation), No guarding, No rebound Pelvic Exam: not done Rectal Exam: not done Back Exam: normal inspection, normal range of motion, CVA tenderness (Mild bilateral), No vertebral tenderness Extremity Exam: normal inspection, normal range of motion, pelvis stable Neurologic Exam: alert, oriented x 3, cooperative, mechanical drafter II-XII nml as tested, normal mood/affect, nml cerebellar function, nml station & gait, sensation nml Skin Exam: normal color, warm, dry Lymphatic Exam: No adenopathy SpO2 Interpretation: normal O2 Delivery: Room Air - Course Nursing assessment & vital signs reviewed: Yes Ordered Tests: Active Orders 24 hr Category Date Time Status CULTURE,URINE Stat Lab 08/12/23 12:47 Received Lab/Rad Data: Laboratory Results 08/12/23 Range/Units 12:47 Urine Color YELLOW (YELLOW) Urine Appearance CLOUDY A (CLEAR) Urine pH 5.5 (5-6) Ur Specific [place] 1.030 A (1.005-1.025) POC Urine Protein Conf >=300 A (Negative) Urine Ketones NEGATIVE (NEGATIVE) Urine Nitrite POSITIVE A (NEGATIVE) Urine Bilirubin NEGATIVE (NEGATIVE) Urine Urobilinogen 1 A (0-1) mg/dL Urine Leukocytes SMALL A (NEGATIVE) U Hyaline Cast (Auto) NONE SEEN (0-2) /LPF Urine RBC LARGE A (0-5) Ryan/ul Urine Microscopic RBC >100 A (0-5) /HPF Urine Microscopic WBC >100 A (0-5) /HPF Ur Epithelial Cells None Seen (None Seen) /HPF Urine Bacteria Many A (None Seen) /HPF Urine Culture Reflexed YES (NO) Urine Glucose NEGATIVE (NEGATIVE) mg/dL - Progress Progress: re-examined, unchanged Air Movement: good Progress Note: 08/12/23 13:00 This patient's medical issue is 1 of low complexity. The level of complexity in the workup performed is based on review of the patient's past medical history, review of the patient's medication list, review of the patient's drug allergy list, history present illness and physical findings on examination. The workup in this patient initially is a urinalysis. If this study is positive for urinary tract infection, I do not feel it necessary to perform any further workup. This was discussed with the patient. She agrees with this plan. However we will order additional studies, if needed, if the urinalysis is negative for infection. Blood Culture(s) Obtained: No Antibiotics given: Yes Counseled pt/family regarding: lab results, diagnosis, need for follow-up Medical Desision Making - Diagnostic Testing Diagnostic test were ordered, analyzed, and reviewed by me: Yes - Risk of complications The pt has a mod risk of morbidity or mortality based on: Need for prescription drug management - Departure Departure Disposition: Home Clinical Impression: Urinary tract infection Condition: Stable Critical Care Time: No Referrals: RAVEN FLORES NP [Primary Care Provider] - Follow up/PCP as directed Additional Instructions: Drink plenty of liquids. Take your medications as prescribed. Follow-up with your primary care provider by phone today, 08/12/2023, to make a follow-up appointment in the next 3 to 5 days. Prescriptions: Ciprofloxacin [Cipro 500 MG] 500 mg PO BID #14 tablet Phenazopyridine HCl 200 mg [Pyridium 200 mg] 200 mg PO TID #6 tablet
[2023-08-12 13:03] VITALS: TEMP 97.4; O2SAT 98
[2023-08-12 13:06] LABS: Appearance CLOUDY (CLEAR); Bilirubin NEGATIVE (NEGATIVE); Glucose NEGATIVE (NEGATIVE); Ketones NEGATIVE (NEGATIVE); Nitrite POSITIVE (NEGATIVE); Ph 5.5 (5-6); Protein,Urine Dip >=300 (Negative); RBC LARGE Ery/ul (0-5); Urobilinogen 1 mg/dL (0-1)
[2023-08-12 13:17] LABS: ADD URINE CULTURE? YES (NO); Bacteria Many /HPF (None Seen); Epithelial Cells None Seen /HPF (None Seen); Hyaline Casts NONE SEEN /LPF (0-2); RBC >100 /HPF (0-5); WBC >100 /HPF (0-5)
[2023-08-12] MEDS ORDERED: XYLOCAINE 1% HCL 20 ML MDV ONE (13:36)
[2023-08-12] MEDS ORDERED: Rocephin 1000 MG INJ ONE (13:36)
[2023-08-12] MEDS ORDERED: Rocephin 1000 MG INJ IM ONE (13:37)
[2023-08-12 13:42] VITALS: BP 170/104; PULSE 88; RESP 20
== END 2023-08-12 13:49 | disposition home or self-care (01) ==
LOC: ED 12:36
DX: N39.0 Urinary tract infection, site not specified (principal); R30.0 Dysuria; R10.2 Pelvic and perineal pain; R10.9 Unspecified abdominal pain; R35.0 Frequency of micturition; E11.9 Type 2 diabetes mellitus without complications; E78.5 Hyperlipidemia, unspecified; I10 Essential (primary) hypertension; Z79.85 Long-term (current) use of injectable non-insulin antidiabetic drugs; Z79.899 Other long term (current) drug therapy
CPT/HCPCS: 81015; 87077; 87086; 87186; 96372; 99283; J0696

== ENCOUNTER 2024-06-06 06:54 | Emergency (ER) | payer MEDICARE, OTHER ==
[2024-06-06 07:12] VITALS: TEMP 97.6
[2024-06-06 07:31] LABS: Appearance Clear (Clear); Bacteria None Seen /HPF (None Seen); Bilirubin Negative (Negative); Blood Negative (Negative); Epithelial Cells Rare /HPF (None Seen); Glucose, Urine Negative (Negative); Hyaline Casts NONE SEEN /LPF (0-2); Ketones Negative (Negative); Leukocyte Esterase Trace (Negative); Nitrite Negative (Negative); Ph 6.5 (4.6-8.0); Protein,Urine Dip Negative (Negative); RBC 0-2 /HPF (0-5)
[2024-06-06 07:37] LABS: Absolute Neutrophil Ct (ANC) 2.32 x10^3/uL (1.56-6.13); BASOPHIL % 1.1 % (0.1-1.2); Basophil (Absolute #) 0.05 x10^3/uL (0.01-0.08); Eosinophil (Absolute #) 0.09 x10^3/uL (0.04-0.36); Hematocrit 33.7 % (34.1-44.9); Hemoglobin 11.4 g/dL (11.2-15.7); IMMATURE GRAN # 0.02 x10^3u/L (0.001-0.031); IMMATURE GRAN % 0.5 % (0.001-0.429); Lymphocytes % 36.1 % (19.3-51.7); Mean Cell Volume 91.1 fL (79.4-94.8); Mean Corpuscular Hemoglobin 30.8 pg (25.6-32.2); Mean Corpuscular Hgb Concent. 33.8 g/dL (32.2-35.5); Mean Platelet Volume 9.3 fL (9.4-12.3); Monocyte (Absolute #) 0.35 x10^3/uL (0.24-0.86); Monocytes % 7.9 % (4.7-12.5); Neutrophil % 52.4 % (34.0-71.1); Platelet Count 166 x10^3/uL (182-369); White Blood Count 4.4 x10^3/uL (3.98-10.04)
[2024-06-06 07:50] LABS: ALBUMIN 3.4 g/dL (3.5-5.0); ANION GAP 9.5 MEQ/L (5-15); BILIRUBIN,TOTAL 0.6 mg/dL (0.2-1.3); Creatinine 1 1.02 mg/dL (0.52-1.04); EST GLOMERULAR FILTRATION RATE 62.2 ML/MIN; Potassium 3.8 mmol/L (3.5-5.1)
--- NOTE | 2024-06-06 08:36 | ERPHSYRPT ---
- History of Present Illness Time Seen by Provider: 06/06/24 08:05 Historian: patient Exam Limitations: no limitations Patient Subjective Stated Complaint: Pt states "I have had pain in my left side for couple of weeks now and it really was hurting this morning." Triage Nursing Assessment: PT presented alert and oriented x 3, skin pwd. pt ambulates with an upright steady gait, able to speak in clear full sentences. pt resting comfortably on the bed. Physician History: 63yo f presents to ED via private vehicle for LUQ and flank pain. Pt reports the pain is crampy in nature, reports it starts in the LUQ and radiates into the left flank. Pt reports pain has been ongoing for several weeks, worsened yesterday. Pt denies any n/v/d, denies any sob or cp, denies any recent trauma to the abdomen or flank. Pt has hx of hysterectomy and cholecystectomy. Pt reports chronic constipation, did have bowel movement yesterday. Timing/Duration: week(s) (3) Activities at Onset: none Quality: cramping Abdominal Pain Onset Location: LUQ Pain Radiation: flank Severity of Pain-Max: mild Severity of Pain-Current: mild Modifying Factors: Improves With: nothing Associated Symptoms: No back, No chest pain, No diarrhea, No fever/chills, No nausea, No shortness of breath, No vomiting Previous symptoms: same symptoms as today, no recent treatment Allergies/Adverse Reactions: No Known Drug Allergies Allergy (Verified 08/12/23 12:53) Home Medications: Atorvastatin Calcium 20 mg PO DAILY 09/12/20 [History] Ergocalciferol (Vitamin D2) [Vitamin D] 50,000 unit PO WEEKLY 09/12/20 [History] clonazePAM [Clonazepam] 0.5 mg PO DAILY PRN PRN 09/06/21 [History] Nitroglycerin 0.4 mg SL UD PRN 08/19/22 [History] PANTOPRAZOLE 40 mg Tablet [Protonix 40MG Tablet] 40 mg PO DAILY 08/19/22 [History] Famotidine 20 mg PO BID 05/15/23 [History] Olmesartan/Hydrochlorothiazide [Olmesartan-Hctz 40-25 mg Tab] 1 each PO DAILY 05/15/23 [History] Omeprazole 40 mg PO DAILY 05/15/23 [History] Spironolactone 50 mg PO DAILY 05/15/23 [History] Phenazopyridine HCl 200 mg [Pyridium 200 mg] 200 mg PO TID PRN 06/06/24 [History] Hx Tetanus, Diphtheria Vaccination/Date Given: Yes Hx Influenza Vaccination/Date Given: Yes Hx Pneumococcal Vaccination/Date Given: Yes Immunizations Up to Date: No Travel Risk - International Travel Have you traveled outside of the country in past 3 weeks: No - Emerging Infectious Disease Are you exhibiting symptoms associated with any current EIDs: No - Review of Systems Constitutional: No Symptoms Respiratory: No Symptoms Cardiac: No Symptoms Abdominal/Gastrointestinal: Abdominal Pain, Constipation, No Nausea, No Vomiting, No Diarrhea Genitourinary Symptoms: No Dysuria, No Frequency, No Hematuria, No Incontinence, No Urgency - Past Medical History Pertinent Past Medical History: Yes Neurological History: No Pertinent History ENT History: No Pertinent History Cardiac History: Arrhythmia, Coronary Artery Disease, High Cholesterol, H ypertension, Myocardial Infarction ([place]) Respiratory History: Sleep Apnea Endocrine Medical History: Diabetes Type II Musculoskeletal History: No Pertinent History GI Medical History: GERD, Gallbladder Disease History: No Pertinent History Psycho-Social History: Depression Female Reproductive Disorders: No Pertinent History Other Medical History: UTI - Past Surgical History Past Surgical History: Yes Neuro Surgical History: No Pertinent History Cardiac: Cardiac Catheterization, Cardiac Stent Respiratory: No Pertinent History Gastrointestinal: Cholecystectomy Genitourinary: No Pertinent History Musculoskeletal: Orthopedic Surgery Female Surgical History: Hysterectomy, Tubal Ligation Other Surgical History: colonoscopy,EGD two yrs ago (GERD) exploratory lap - neg., left foot fx with plate placed March 2020 Significant Family History: no pertinent family hx - Social History Smoking Status: Never smoker Exposure to second hand smoke: Yes Drug Use: none Patient Lives Alone: No - Social Determinants of Health Will the patient participate in the screening: Yes Do you worry about a steady place to live?: No Do you have any problems with any of the following?: No known problems In the past 12 months,have you had to go without utilities?: No Transportation Issues: No Has anyone in your support network made you feel unsafe?: No Have you or anyone in your house had to go without enough: No - Nursing Vital Signs Nursing Vital Signs: Initial Vital Signs Temperature 97.6 F 06/06/24 07:07 Pulse Rate 75 06/06/24 07:07 Respiratory Rate 18 06/06/24 07:07 Blood Pressure 145/80 06/06/24 07:07 O2 Sat by Pulse Oximetry 100 06/06/24 07:07 Pain Scale Pain Intensity 2 - Physical Exam General Appearance: no apparent distress, alert Respiratory Exam: normal breath sounds, lungs clear, airway intact, No chest tenderness, No respiratory distress Cardiovascular Exam: regular rate/rhythm, normal heart sounds Gastrointestinal/Abdomen Exam: soft, normal bowel sounds, No tenderness, No distention, No mass SpO2: 96 Ordered Tests: Active Orders 24 hr Category Date Time Status KUB Stat Exams 06/06/24 08:38 Taken CBC W DIFF Stat Lab 06/06/24 07:37 Completed CMP Stat Lab 06/06/24 07:37 Completed LIPASE Stat Lab 06/06/24 07:37 Completed UA W/RFX UR CULTURE Stat Lab 06/06/24 07:22 Completed Lab/Rad Data: Laboratory Result Diagrams 06/06/24 07:37 06/06/24 07:37 Laboratory Results 06/06/24 06/06/24 06/06/24 Range/Units 07:37 07:37 07:37 WBC 4.4 (3.98-10.04) x10^3/uL RBC 3.70 L (3.93-5.22) x10^6/uL Hgb 11.4 (11.2-15.7) g/dL Hct 33.7 L (34.1-44.9) % MCV 91.1 (79.4-94.8) fL MCH 30.8 (25.6-32.2) pg MCHC 33.8 (32.2-35.5) g/dL RDW 12.0 (11.7-14.4) % Plt Count 166 L (182-369) x10^3/uL MPV 9.3 L (9.4-12.3) fL Gran % 52.4 (34.0-71.1) % Immature Gran % (Auto) 0.5 H (0.001-0.429) % Nucleat RBC Rel Count 0.0 (0.00-0.2) % Eos # (Auto) 0.09 (0.04-0.36) x10^3/uL Immature Gran # (Auto) 0.02 (0.001-0.031) x10^3u/L Absolute Lymphs (auto) 1.60 (1.18-3.74) x10^3/uL Absolute Monos (auto) 0.35 (0.24-0.86) x10^3/uL Absolute Nucleated RBC 0.00 (0.00-0.012) x10^3u/L Lymphocytes % 36.1 (19.3-51.7) % Monocytes % 7.9 (4.7-12.5) % Eosinophils % 2.0 (0.7-5.8) % Basophils % 1.1 (0.1-1.2) % Absolute Granulocytes 2.32 (1.56-6.13) x10^3/uL Basophils # 0.05 (0.01-0.08) x10^3/uL Sodium 140 (135-145) mmol/L Potassium 3.8 (3.5-5.1) mmol/L Chloride 107 (98-107) mmol/L Carbon Dioxide 28 (22-30) mmol/L Anion Gap 9.5 (5-15) MEQ/L BUN 8 (7-17) mg/dL Creatinine 1.02 (0.52-1.04) mg/dL Estimated GFR 62.2 ML/MIN Glucose 90 (74-106) mg/dL Calcium 9.0 (8.4-10.2) mg/dL Total Bilirubin 0.60 (0.2-1.3) mg/dL AST 30 (14-36) U/L ALT 20 (0-35) U/L Alkaline Phosphatase 56 (38-126) U/L Serum Total Protein 6.0 L (6.3-8.2) g/dL Albumin 3.4 L (3.5-5.0) g/dL Lipase 669 H (23-300) U/L Urine Color (Yellow) Urine Appearance (Clear) Urine pH (4.6-8.0) Ur Specific [place] (1.005-1.030) Urine Protein (Negative) Urine Glucose (UA) (Negative) mg/dL Urine Ketones (Negative) Urine Blood (Negative) Urine Nitrite (Negative) Urine Bilirubin (Negative) Urine Urobilinogen (0.2) mg/dL Ur Leukocyte Esterase (Negative) U Hyaline Cast (Auto) (0-2) /LPF Urine Microscopic RBC (0-5) /HPF Urine Microscopic WBC (0-5) /HPF Ur Epithelial Cells (None Seen) /HPF Urine Bacteria (None Seen) /HPF Urine Culture Reflexed (NO) 06/06/24 Range/Units 07:22 WBC (3.98-10.04) x10^3/uL RBC (3.93-5.22) x10^6/uL Hgb (11.2-15.7) g/dL Hct (34.1-44.9) % MCV (79.4-94.8) fL MCH (25.6-32.2) pg MCHC (32.2-35.5) g/dL RDW (11.7-14.4) % Plt Count (182-369) x10^3/uL MPV (9.4-12.3) fL Gran % (34.0-71.1) % Immature Gran % (Auto) (0.001-0.429) % Nucleat RBC Rel Count (0.00-0.2) % Eos # (Auto) (0.04-0.36) x10^3/uL Immature Gran # (Auto) (0.001-0.031) x10^3u/L Absolute Lymphs (auto) (1.18-3.74) x10^3/uL Absolute Monos (auto) (0.24-0.86) x10^3/uL Absolute Nucleated RBC (0.00-0.012) x10^3u/L Lymphocytes % (19.3-51.7) % Monocytes % (4.7-12.5) % Eosinophils % (0.7-5.8) % Basophils % (0.1-1.2) % Absolute Granulocytes (1.56-6.13) x10^3/uL Basophils # (0.01-0.08) x10^3/uL Sodium (135-145) mmol/L Potassium (3.5-5.1) mmol/L Chloride (98-107) mmol/L Carbon Dioxide (22-30) mmol/L Anion Gap (5-15) MEQ/L BUN (7-17) mg/dL Creatinine (0.52-1.04) mg/dL Estimated GFR ML/MIN Glucose (74-106) mg/dL Calcium (8.4-10.2) mg/dL Total Bilirubin (0.2-1.3) mg/dL AST (14-36) U/L ALT (0-35) U/L Alkaline Phosphatase (38-126) U/L Serum Total Protein (6.3-8.2) g/dL Albumin (3.5-5.0) g/dL Lipase (23-300) U/L Urine Color Yellow (Yellow) Urine Appearance Clear (Clear) Urine pH 6.5 (4.6-8.0) Ur Specific [place] 1.010 (1.005-1.030) Urine Protein Negative (Negative) Urine Glucose (UA) Negative (Negative) mg/dL Urine Ketones Negative (Negative) Urine Blood Negative (Negative) Urine Nitrite Negative (Negative) Urine Bilirubin Negative (Negative) Urine Urobilinogen 1.0 A (0.2) mg/dL Ur Leukocyte Esterase Trace A (Negative) U Hyaline Cast (Auto) NONE SEEN (0-2) /LPF Urine Microscopic RBC 0-2 (0-5) /HPF Urine Microscopic WBC 3-5 (0-5) /HPF Ur Epithelial Cells Rare (None Seen) /HPF Urine Bacteria None Seen (None Seen) /HPF Urine Culture Reflexed NO (NO) - Progress Progress: improved, pain not gone completely Progress Note: 06/06/24 09:18 significant stool burden and bowel gas on KUB lipase mildly elevated, pt tolerating PO intake w/o difficulties offered laxative/stool softener treatment in ED, pt requesting to use OTC medications at home lab workup otherwise unremarkable Counseled pt/family regarding: lab results, diagnosis, need for follow-up, rad results Medical Desision Making - Diagnostic Testing Diagnostic test were ordered, analyzed, and reviewed by me: Yes Radiological Interpretation: Interpreted by me, Reviewed by me - Risk of complications Minimal Risk: Minimal risk of morbidity - Departure Departure Disposition: Home Clinical Impression: Constipation Qualifiers: Constipation type: slow transit constipation Qualified Code(s): K59.01 - Slow transit constipation Condition: Stable Critical Care Time: No Referrals: RAVEN JEAN NP [Primary Care Provider] - Follow up/PCP as directed Additional Instructions: follow up w/ PCP Rachell Jean this week recommend daily miralax w/ 8oz water first thing in the AM recommend oral hydration w/ clear liquids, electrolyte containing fluids return to ED if: start vomiting, abdominal pain worsens, unable to have bowel movement w/ OTC laxatives, develop bloody vomit or stools
[2024-06-06 09:36] VITALS: BP 138/75; PULSE 88; RESP 20; O2SAT 98
--- NOTE | 2024-06-06 20:12 | XRAY ---
Indication: Left upper quadrant pain. KUB nonacute and nonobstructed with mild/moderate scattered colonic fecal debris greatest in ascending/transverse colon. Well-circumscribed round phleboliths in pelvis and right lateral to L4-L5. Previous cystectomy. Osseous structures intact with osteopenia and mild degenerative changes.
== END 2024-06-06 09:36 | disposition home or self-care (01) ==
LOC: ED 06:54
DX: K59.01 Slow transit constipation (principal); R10.12 Left upper quadrant pain; E78.5 Hyperlipidemia, unspecified; I10 Essential (primary) hypertension; E11.9 Type 2 diabetes mellitus without complications; Z79.899 Other long term (current) drug therapy
CPT/HCPCS: 36415; 74018; 80053; 81001; 83690; 85025; 99283